=== PATIENT | male | born 1950 | race Caucasian/White ===

== ENCOUNTER 2017-08-09 12:58 | Emergency (ER) | payer MEDICARE, BC ==
[~2017-08-09] VITALS: Ht 177.8 cm; Wt 90.5 kg
[~2017-08-09 12:58] MED LIST: AMLO5TAB22 PO; ATOR10TA PO; B12-1CHW CHEW; CILO50TA PO; CLOP75 PO; ECOT81TA2 PO; METO50TA PO; OMEP40CA2 PO; WALKER ROLLING
[2017-08-09 13:16] VITALS: BP 93/51; PULSE 62; RESP 16; TEMP 98.2; O2SAT 99
[2017-08-09] MEDS ORDERED: OMEP20TA93 PO (13:31)
[2017-08-09] MEDS ORDERED: PLAV75TA29 PO (13:31)
[2017-08-09] MEDS ORDERED: [UNRECOGNIZED DRUG - OTHER] (13:31)
[2017-08-09] MEDS ORDERED: METO50TA PO (13:31)
[2017-08-09] MEDS ORDERED: ASPI1TAB57 PO (13:31)
[2017-08-09] MEDS ORDERED: CILO100T PO (13:31)
[2017-08-09] MEDS ORDERED: ATOR10TA15 PO (13:31)
[2017-08-09] MEDS ORDERED: AMLOPOW PO (13:31)
[2017-08-09] MEDS ORDERED: LIDOCAINE 1%/EPINEPHrine 1:100,000 SOLN 50 ML VIAL INFIL ONE (13:45)
--- NOTE | 2017-08-09 14:24 | RADRPT ---
EXAM DATE/TIME: 08/09/2017 13:48 [place] COMPARISON: No previous studies available for comparison. INDICATIONS : Left forearm pain post dog bite MEDICAL HISTORY : None. SURGICAL HISTORY : None. ENCOUNTER: Initial ACUITY: 1 day PAIN SCORE: 5/10 LOCATION: Left posterior forearm FINDINGS: Air is seen in the soft tissues of the forearm without foreign body or fracture. CONCLUSION: In the soft tissues, dogbite by history. Elfego Elizabeth MD FACR on August 09, 2017 at 14:21 Board Certified Radiologist. This report was verified electronically.
--- NOTE | 2017-08-09 14:41 | PD ---
HPI Chief Complaint: Bite or Sting Time Seen by Provider: 13:37 Travel History International Travel<30 days: No Contact w/Intl Traveler<30days: No Traveled to known affect area: No History of Present Illness HPI Patient comes in the emergency department complaining of dog bite to his left forearm that occurred shortly prior to arrival. Patient reports it was his dog that bit him for the second time in a week. Patient reports dog's vaccinations are up-to-date. Patient states he received a tetanus shot last week when his dog bit him. Patient reports he has 2 and half more days left of Augmentin. Patient denies doing anything for this prior to coming to the emergency department other than applying pressure. Patient denies any numbness or tingling. Patient reports a burning sensation around site of the bite without radiation. Denies anything making symptoms worse. Denies any decreased range of motion or weakness PFSH Past Medical History Hx Anticoagulant Therapy: Yes (PLAVIX) Arthritis: No Asthma: No Autoimmune Disease: No Blood Disorders: No Heart Rhythm Problems: No Cancer: Yes (SKIN CA ON EAR) Cardiovascular Problems: Yes High Cholesterol: Yes Chemotherapy: No Chest Pain: No Congestive Heart Failure: No COPD: No Cerebrovascular Accident: No Diabetes: No Diminished Hearing: No Endocrine: No Gastrointestinal Disorders: Yes (ACID REFLUX, BLOOD IN STOOL,ULCER BASE OF ESOHPAGUS) GERD: Yes Glaucoma: No Genitourinary: No Headaches: No Hepatitis: No Hiatal Hernia: Yes Hypertension: Yes Immune Disorder: No Kidney Stones: No Medical other: No Musculoskeletal: Yes (DIFFICULTY WALKING FOR LONG DISTANCES PVD) Neurologic: No Psychiatric: Yes (SLIGHTLY CLAUSTROPHOBIC) Reproductive: No Respiratory: No Migraines: No Myocardial Infarction: Yes Radiation Therapy: No Renal Failure: No Seizures: No Sickle Cell Disease: No Sleep Apnea: No Thyroid Disease: No Ulcer: No Past Surgical History Abdominal Aneurysm Repair: Yes (DECEMBER 2006) Abdominal Surgery: Yes (RUPTURED AAA 11/28/2006, VENTRAL HERNIA REPAIR X 2008) AICD: No Appendectomy: No Arteriovenous Shunt: No Body Medical Devices: AAA REPAIR, STERNAL WIRES, HERNIA MESH Cardiac Surgery: Yes (CABG 4 VESSEL 01/2007) Cholecystectomy: No Coronary Artery Bypass Graft: Yes (x4 december 2006) Ear Surgery: No Endocrine Surgery: No Eye Surgery: No Genitourinary Surgery: No Gynecologic Surgery: No Insulin Pump: No Joint Replacement: No Neurologic Surgery: No Oral Surgery: Yes (TONSILLECTOMY) Pacemaker: No Thoracic Surgery: No Other Surgery: Yes Family History Family Hypercholesterolemia: Yes Social History Alcohol Use: Yes (VODKA,WINE DAILY ) Tobacco Use: No Substance Use: No Allergies-Medications (Allergen,Severity, Reaction): Coded Allergies: No Known Allergies (Verified Adverse Reaction, Unknown, 08/09/17) Reported Meds & Prescriptions Reported Meds & Active Scripts Active Augmentin (Amoxicillin-Clavulanate) 875-125 Mg Tab 1 Tab PO BID 4 Days start after finishing current prescription Reported [B12 Chew] Omeprazole 20 Mg Tab 20 Mg PO DAILY Metoprolol Tartrate 50 Mg Tab 50 Mg PO BID Plavix (Clopidogrel Bisulfate) 75 Mg Tab 75 Mg PO QOD Cilostazol 100 Mg Tab 100 Mg PO BID Atorvastatin (Atorvastatin Calcium) 10 Mg Tab 10 Mg PO HS Aspirin 81 (Aspirin) 81 Mg Tabdr 81 Mg PO DAILY [Amlodipine Besylate] 5 Mg PO DAILY Review of Systems Except as stated in HPI: all other systems reviewed are Neg Physical Exam Narrative GENERAL: Well-developed, overly nourished, in no acute distress, and non-ill appearing. SKIN: Dog bite on her left forearm with multiple small puncture wounds surrounding it. HEAD: Atraumatic. Normocephalic. EYES: Pupils equal and round. EOMI. No scleral icterus. No injection or drainage. ENT: No nasal bleeding or discharge. Mucous membranes pink and moist. NECK: Trachea midline. Supple. No nuclear rigidity. CARDIOVASCULAR: Radial pulses 2+, intact, equal bilaterally. Capillary refill less than 2 seconds. RESPIRATORY: No accessory muscle use. No respiratory distress. MUSCULOSKELETAL: No obvious deformities. No clubbing. No cyanosis. No edema. Full range of motion. Wrist: FROM and equal BL with passive flexion, extension , and pronation/supination. Capillary refill less than 2 seconds distal to injury and equal BL. FROM distal to injury and equal BL. Strength distal to injury equal BL. NV intact distal to injury. Flexion and extension of thumb equal BL. Equal strength and movement with abduction/adductions of BL fingers. Acupressure Therapist strength equal BL. No tenderness to the anatomical snuffbox. NEUROLOGICAL: Awake and alert. No obvious cranial nerve deficits. Motor grossly within normal limits. Normal speech. PSYCHIATRIC: Appropriate mood and affect; insight and judgment normal. Data Data Last Documented VS Vital Signs Date Time Temp Pulse Resp B/P (MAP) Pulse Ox O2 Delivery O2 Flow Rate FiO2 08/09/17 14:47 120/71 (87) 08/09/17 13:16 98.2 62 16 99 Orders Orders Lidocai-Epi 1%-1:100,000 Inj (Xylocaine- (08/09/17 13:45) Forearm (2vws) (08/09/17 ) Ed Discharge Order (08/09/17 14:42) MDM Medical Decision Making Medical Screen Exam Complete: Yes Emergency Medical Condition: Yes Interpretation(s) Last Impressions Radius/Ulna X-Ray 08/09/17 0000 Signed Impressions: Service Date/Time: Wednesday, August 09, 2017 13:48 - CONCLUSION: In the soft tissues, dogbite by history. Elfego Elizabeth MD FACR Differential Diagnosis Dog bite, laceration, puncture wound, foreign body, fracture, open fracture Narrative Course The patient suffered animal bite wound. The animal is domesticated, vaccinations are reported to be UTD and the animal can be watched. There is no evidence of deep tissue involvement and/or local tendon involvement. There was no evidence to suggest foreign bodies. Visual and tactile exams were unremarkable. There was no evidence of neurovascular injury as well. The patients wounds were irrigated copiously, cleaned and dressed. Rabies prophylaxis was discussed with the patient and exposure appears low risk and not indicated. The patient was given signs and symptom warnings for infection, such as increasing pain, pain with movement of involved extremity,redness, swelling, associated heat, pus or fever. The patient was given antibiotics to cover mouth florencio and instructions for timely follow up for wound recheck. The patient agreed with plan of care. Animal control was contacted per hospital protocol. X-ray was performed and there was no foreign body or tooth/tooth fragment. Patient in no obvious distress upon re-evaluation. All pertinent Radiology result(s) discussed with patient/family. Discussed patient with Dr. Bravo prior to discharge, who is in agreement with plan of care and disposition. Patient was asked if they wanted to speak to my attending, which the patient did not wish to do at this time. Any questions/concerns in reference to patient diagnosis/condition discussed and clarified prior to patient's discharge. Reinforced sheer importance of close follow up with patient's primary physician or primary care clinic. Instructed patient to return to ED immediately, if symptoms return/worsen. Patient showed understanding of above instructions. Further instructions and recommendations were detailed in discharge paperwork. Patient ambulated without difficulty out of ED at discharge. Diagnosis Primary Impression: Dog bite Qualified Codes: W54.0XXA - Bitten by dog, initial encounter Patient Instructions: Animal Bite (ED), General Instructions Additional Instructions: Follow-up with your primary care physician or return here in 10-14 days for suture removal. Take all medication as prescribed. Keep wound dry and clean as possible using soap and water. Do not soak or submerge wound. Return to the emergency department if symptoms get worse. Med/Other Pt SpecificInfo: Prescription(s) given Scripts Amoxicillin-Clavulanate (Augmentin) 875-125 Mg Tab 1 TAB PO BID for Infection for 4 Days, #8 TAB 0 Refills start after finishing current prescription Prov: Lalito Hutchinson MD 08/09/17 Disposition: 01 DISCHARGE HOME Condition: Stable Rubén Ruffin Aug 09, 2017 14:41
[2017-08-09] MEDS ORDERED: AUGM875T3 PO (14:42)
[2017-08-09 14:47] VITALS: BP 120/71
== END 2017-08-09 15:12 | disposition home or self-care (01) ==
LOC: PHEFT 12:58
DX: S51.852A Open bite of left forearm, initial encounter (principal); I10 Essential (primary) hypertension; E78.00 Pure hypercholesterolemia, unspecified; K21.9 Gastro-esophageal reflux disease without esophagitis; I25.2 Old myocardial infarction; I73.9 Peripheral vascular disease, unspecified; W54.0XXA Bitten by dog, initial encounter; Z85.828 Personal history of other malignant neoplasm of skin; Z95.1 Presence of aortocoronary bypass graft; Z86.79 Personal history of other diseases of the circulatory system; Z79.82 Long term (current) use of aspirin; Z79.899 Other long term (current) drug therapy
CPT/HCPCS: 73090; 99283

== ENCOUNTER 2017-08-24 13:16 | Emergency (ER) | payer MEDICARE, BC ==
[~2017-08-24] VITALS: Ht 177.8 cm; Wt 92.3 kg
[~2017-08-24 13:16] MED LIST changes: -AMLO5TAB22 PO; +AMLOPOW PO; +ASPI1TAB57 PO; -ATOR10TA PO; +ATOR10TA15 PO; +AUGM875T3 PO; -B12-1CHW CHEW; +CILO100T PO; -CILO50TA PO; -CLOP75 PO; -ECOT81TA2 PO; +OMEP20TA93 PO; -OMEP40CA2 PO; +PLAV75TA29 PO; -WALKER ROLLING; +[UNRECOGNIZED DRUG - OTHER]
[2017-08-24 13:36] VITALS: BP 130/66; PULSE 73; RESP 16; TEMP 98.3; O2SAT 96
[2017-08-24] MEDS ORDERED: BACT800T5 PO (14:39)
--- NOTE | 2017-08-24 14:40 | PD ---
HPI Chief Complaint: Wound/Suture/Staple Re-Check Time Seen by Provider: 14:04 Travel History International Travel<30 days: No Contact w/Intl Traveler<30days: No Traveled to known affect area: No History of Present Illness HPI This is a 14-year-old male here for suture removal to his left forearm. Patient sustained a laceration caused by dogbite and was evaluated in the ER approximately an days ago. He was placed on antibiotics at the time. He denies fever or chills. He has noticed some redness and swelling to the wound site over the last several days. Severity is mild. No aggravating or alleviating factors. PFSH Past Medical History Hx Anticoagulant Therapy: Yes (PLAVIX) Arthritis: No Asthma: No Autoimmune Disease: No Blood Disorders: No Heart Rhythm Problems: No Cancer: Yes (SKIN CA ON EAR) Cardiovascular Problems: Yes High Cholesterol: Yes Chemotherapy: No Chest Pain: No Congestive Heart Failure: No COPD: No Cerebrovascular Accident: No Diabetes: No Diminished Hearing: No Endocrine: No Gastrointestinal Disorders: Yes (ACID REFLUX, BLOOD IN STOOL,ULCER BASE OF ESOHPAGUS) GERD: Yes Glaucoma: No Genitourinary: No Headaches: No Hepatitis: No Hiatal Hernia: Yes Hypertension: Yes Immune Disorder: No Kidney Stones: No Musculoskeletal: Yes (DIFFICULTY WALKING FOR LONG DISTANCES PVD) Neurologic: No Psychiatric: Yes (SLIGHTLY CLAUSTROPHOBIC) Reproductive: No Respiratory: No Migraines: No Myocardial Infarction: Yes Radiation Therapy: No Renal Failure: No Seizures: No Sickle Cell Disease: No Sleep Apnea: No Thyroid Disease: No Ulcer: No ?: Not Past Surgical History Abdominal Aneurysm Repair: Yes (DECEMBER 2006) Abdominal Surgery: Yes (RUPTURED AAA 11/28/2006, VENTRAL HERNIA REPAIR X 2008) AICD: No Appendectomy: No Arteriovenous Shunt: No Body Medical Devices: AAA REPAIR, STERNAL WIRES, HERNIA MESH Cardiac Surgery: Yes (CABG VESSEL 01/2007) Cholecystectomy: No Coronary Artery Bypass Graft: Yes (x03 january 2007) Ear Surgery: No Endocrine Surgery: No Eye Surgery: No Genitourinary Surgery: No Gynecologic Surgery: No Insulin Pump: No Joint Replacement: No Neurologic Surgery: No Oral Surgery: Yes (TONSILLECTOMY) Pacemaker: No Thoracic Surgery: No Other Surgery: Yes Family History Family Hypercholesterolemia: Yes Social History Alcohol Use: Yes (VODKA,WINE DAILY ) Tobacco Use: No Substance Use: No Allergies-Medications (Allergen,Severity, Reaction): Coded Allergies: No Known Allergies (Verified Adverse Reaction, Unknown, 08/24/17) Reported Meds & Prescriptions Reported Meds & Active Scripts Active Augmentin (Amoxicillin-Clavulanate) 875-125 Mg Tab 1 Tab PO BID 4 Days start after finishing current prescription Reported [B12 Chew] Omeprazole 20 Mg Tab 20 Mg PO DAILY Metoprolol Tartrate 50 Mg Tab 50 Mg PO BID Plavix (Clopidogrel Bisulfate) 75 Mg Tab 75 Mg PO QOD Cilostazol 100 Mg Tab 100 Mg PO BID Atorvastatin (Atorvastatin Calcium) 10 Mg Tab 10 Mg PO HS Aspirin 81 (Aspirin) 81 Mg Tabdr 81 Mg PO DAILY [Amlodipine Besylate] 5 Mg PO DAILY Review of Systems Except as stated in HPI: all other systems reviewed are Neg General / Constitutional: No: Fever Physical Exam Narrative GENERAL: Alert well-appearing 66-year-old male SKIN: Warm and dry. Healing laceration with a large scab to the left forearm. Mild amount of surrounding erythema and edema. The area is mildly indurated and tender to palpation. No fluctuance. No purulent drainage. [address] HEAD: Normocephalic. EYES: No injection or drainage. NECK: Supple MUSCULOSKELETAL: No cyanosis, or edema. See skin noted above Data Data Last Documented VS Vital Signs Date Time Temp Pulse Resp B/P (MAP) Pulse Ox O2 Delivery O2 Flow Rate FiO2 08/24/17 13:36 98.3 73 16 130/66 (87) 96 MDM Medical Decision Making Medical Screen Exam Complete: Yes Emergency Medical Condition: Yes Differential Diagnosis Wound infection, suture removal, abscess Narrative Course 66-year-old male here for suture removal. The wound appears to have mild wound infection. Is indurated with surrounding erythema. No fluctuance noted. 6 sutures were removed. He'll be placed on Bactrim. Instructed to follow-up primary doctor for recheck. Diagnosis Primary Impression: Wound infection Referrals: Primary Care Physician Additional Instructions: Cleansed the area daily with soap and warm water. Apply thin layer of antibiotic ointment and cover with a dressing. Take the antibiotics as prescribed. Follow-up with her primary doctor. Return if he developed new or worsening symptoms Scripts Sulfamethoxazole-Trimethoprim (Bactrim DS) 800-160 Mg Tab 1 TAB PO BID for Infection, #14 TAB 0 Refills Prov: Glenna Dacosta 08/24/17 Disposition: 01 DISCHARGE HOME Condition: Stable Glenna Dacosta Aug 24, 2017 14:40
== END 2017-08-24 15:00 | disposition home or self-care (01) ==
LOC: PHEFT 13:16
DX: Z48.02 Encounter for removal of sutures (principal); L53.9 Erythematous condition, unspecified; E78.00 Pure hypercholesterolemia, unspecified; K21.9 Gastro-esophageal reflux disease without esophagitis; I10 Essential (primary) hypertension; I25.2 Old myocardial infarction; Z79.899 Other long term (current) drug therapy
CPT/HCPCS: 99283

== ENCOUNTER 2018-01-23 08:13 | Observation (INO) ==
--- NOTE | 2018-01-23 10:50 | ED ---
HPI General Chief complaint: Weakness Stated complaint: Weakness Complaint Time Seen by Provider: 01/23/18 10:45 Source: patient and family Mode of arrival: ambulatory Limitations: no limitations History of Present Illness HPI Narrative: 67-year-old male patient presents to the ER today brought in by his because he has had progressive weakness that has really been going on for about a year, but they had just gotten back from vacation and they feel like it is getting worse in the last few weeks, and he has had a series of falls over the last few days, he states he did hit his head but did not have an loss consciousness. He feels like is a general weakness, denies any chest pains , trouble breathing, vomiting, diarrhea, or other symptoms. It does not seem to be focal, feels like his legs just give out on him in general. Related Data Allergies Allergy/AdvReac Type Severity Reaction Status Date / Time No Known Allergies AdvReac Unknown Uncoded 08/24/17 13:36 Review of Systems Except as stated in HPI: all other systems reviewed are negative [facility] Surgical History Surgical History History of AAA (abdominal aortic aneurysm) repair (Acute) S/P CABG x 4 (Acute) Social History Social History Second Hand Smoke Exposure: No Smoking Status: Former smoker How Often Do You Have a Drink Containing Alcohol: 4 or more times a week Recent Travel in [facility] within the Last 8 Weeks: No Recent Out of Country Travel within the Last 8 Weeks: No Immunization History Tetanus Immunization: <5 Years Exam Narrative Exam Narrative: GENERAL: Well-developed elderly white male patient currently in mild distress. Awake and oriented 3. SKIN: Focused skin assessment warm/dry. HEAD: Atraumatic. Normocephalic. EYES: Pupils equal and round. No scleral icterus. No injection or drainage. ENT: No nasal bleeding or discharge. Mucous membranes pink and moist. NECK: Trachea midline. No JVD. CARDIOVASCULAR: Regular rate and rhythm. No murmur appreciated. RESPIRATORY: No accessory muscle use. Clear to auscultation. Breath sounds equal bilaterally. GASTROINTESTINAL: Abdomen soft, non-tender, nondistended. Hepatic and splenic margins not palpable. MUSCULOSKELETAL: No obvious deformities. No clubbing. No cyanosis. No edema. NEUROLOGICAL: Awake and alert. No obvious cranial nerve deficits. Motor grossly within normal limits. Normal speech. PSYCHIATRIC: Appropriate mood and affect; insight and judgment normal. Course Hospital Course: EKG did not show any signs of acute dysrhythmias or ST changes. Patient had no focal neurological deficits. Lab work does show some anemia although it is unclear whether this is contributory. CT the brain did not show any signs of acute injuries or acute processes. At this point, my plan would be to admit him for further evaluation. Case was discussed with [facility] resident service for admission. Initial Documented Vital Signs Temperature 98.3 F 01/23/18 09:39 Pulse Rate 84 01/23/18 09:39 Respiratory Rate 12 01/23/18 09:39 Blood Pressure 148/74 H 01/23/18 09:39 Pulse Oximetry 96 01/23/18 09:39 Last Documented Vital Signs Temperature 98.3 F 01/23/18 09:39 Pulse Rate 84 01/23/18 09:43 Respiratory Rate 17 01/23/18 09:43 Blood Pressure 165/89 H 01/23/18 09:43 Pulse Oximetry 98 01/23/18 09:43 Medical Decision Making MDM Narrative Medical decision making narrative: Dehydration versus electrolyte abnormalities versus acute CVA Lab Data Lab results reviewed: Yes I reviewed the patient's lab results. Result diagrams: 01/23/18 11:00 01/23/18 11:00 Lab Results 01/23/18 01/23/18 Range/Units 11:00 11:00 WBC 4.5 (4.0-11.0) th/mm3 RBC 2.73 L (4.50-5.90) mil/mm3 Hgb 8.3 L (13.0-17.0) gm/dL Hct 25.4 L (39.0-51.0) % MCV 93.0 (80.0-100.0) fL MCH 30.6 (27.0-34.0) pg MCHC 32.9 (32.0-36.0) % RDW 18.5 H (11.6-17.2) % Plt Count 197 (150-450) th/mm3 MPV 7.4 (7.0-11.0) fL Neut % (Auto) 76.7 H (16.0-70.0) % Lymph % (Auto) 10.8 (9.0-44.0) % [place] % (Auto) 11.6 H (0.0-8.0) % Eos % (Auto) 0.3 (0.0-4.0) % Baso % (Auto) 0.6 (0.0-2.0) % Neut # (Auto) 3.4 (1.8-7.7) th/mm3 Lymph # (Auto) 0.5 L (1.0-4.8) th/mm3 Kem[place] # (Auto) 0.5 (0.0-0.9) th/mm3 Eos # (Auto) 0.0 (0.0-0.4) th/mm3 Baso # (Auto) 0.0 (0.0-0.2) th/mm3 WBC Differential . Differential Comment Auto diff final Sodium 132 L (136-145) meq/L Potassium 3.2 L (3.5-5.1) meq/L Chloride 96 L (98-107) meq/L Carbon Dioxide 20.1 L (21.0-32.0) meq/L Anion Gap 16 H (5-15) meq/L BUN 18 (7-18) mg/dL Creatinine 1.21 (0.60-1.30) mg/dL Estimated GFR 59 L (>89) mL/min Random Glucose 74 (74-106) mg/dL Calcium 8.2 L (8.5-10.1) mg/dL Total Bilirubin 0.7 (0.2-1.0) mg/dL AST 76 H (15-37) U/L ALT 51 (12-78) U/L Alkaline Phosphatase 66 (45-117) U/L Troponin I Less than 0.02 L (0.02-0.05) ng/mL Total Protein 7.3 (6.4-8.2) g/dL Albumin 3.8 (3.4-5.0) g/dL Imaging Data Attestation: I personally reviewed and interpreted this imaging study as follows : Radiologist's impression: Chest X-Ray 01/23/18 10:45 CONCLUSION: No acute cardiopulmonary disease. Head CT 01/23/18 10:45 CONCLUSION: 1. No acute hemorrhage or mass effect. 2. Moderate atrophy and extensive chronic small vessel ischemic changes. ECG Data EKG Prior to Arrival: Yes Attestation: I personally reviewed and interpreted this ECG as follows: Interpretation: EKG shows sinus rhythm at a rate of 73 bpm. No signs of acute ST elevations or depressions. Discharge Plan Discharge Disposition Patient Disposition: 30 Still Patient Discharge Condition Condition: Stable Discharge Details Anticipated Discharge Date: 01/23/18 Diagnosis: Anemia, Multiple falls, Weakness Physicians Team ED Provider: Jessica Mckay Primary Care Provider: Leah Arteaga Discharge Interventions Interventions: Vital Signs Last Done: 01/23/18 09:43 Status ED Status: With Doctor
--- NOTE | 2018-01-23 11:23 | XR ---
EXAM DATE: 01/23/2018 11:18 AM EDT AGE/SEX: 67 years / Male INDICATIONS: Palpitations. Increased weakness and falls. CLINICAL DATA: This is the patient's initial encounter. Patient reports that signs and symptoms have been present for > 1 year and indicates a pain score of 0/10. MEDICAL/SURGICAL HISTORY: Hypertension. Abdominal aortic aneurysm repair. CABG. COMPARISON: No prior exams available for comparison. FINDINGS: A single AP view of the chest demonstrates the lungs to be symmetrically aerated without evidence of mass, infiltrate or effusion. The cardiomediastinal contours are unremarkable. Osseous structures a re intact. The patient is status post median sternotomy for bypass grafting procedure. There are ove rlying electrocardiogram leads. CONCLUSION: No acute cardiopulmonary disease. Electronically signed by: Roge Lopez MD 01/23/2018 11:22 AM EDT
--- NOTE | 2018-01-23 11:25 | ECG ---
Date Performed: 01/23/2018 Time Performed: 09:38:59 PTAGE: 67 years EKG: Sinus rhythm INFERIOR MYOCARDIAL INFARCTION ABNORMAL ECG PREVIOUS TRACING : 01/23/2018 09.37 DOCTOR: Sarmad Wiseman Interpretating Date/Time 01/23/2018 11:24:13
--- NOTE | 2018-01-23 11:37 | CT ---
EXAM DATE: 01/23/2018 11:35 AM EDT AGE/SEX: 67 years / Male INDICATIONS: Weakness. Multiple falls. CLINICAL DATA: This is the patient's initial encounter. Patient reports that signs and symptoms have been present for 3 weeks and indicates a pain score of 0/10. MEDICAL/SURGICAL HISTORY: Cardiovascular disease. CABG. Abdominal aortic aneurysm repair. RADIATION DOSE: 66.34 CTDI (mGy) COMPARISON: No prior exams available for comparison. TECHNIQUE: CT of the head without contrast. Using automated exposure control and adjustment of the mA and/or kV according to patient size, radiation dose was kept as low as reasonably achievable to ob tain optimal diagnostic quality images. DICOM format image data is available electronically for revi ew and comparison. FINDINGS: Cerebrum: The ventricles are normal for age with diffuse moderate atrophic change with sulcal and ve ntricular prominence. Extensive chronic small vessel ischemic changes are noted with low-attenuation throughout the periventricular white matter. No evidence of midline shift, mass lesion, hemorrhage or acute infarction. No extraaxial fluid collections are seen. Posterior Fossa: The cerebellum and brainstem are intact. The 4th ventricle is midline. The cerebe llopontine angle is unremarkable. Extracranial: The visualized portion of the orbits is intact. Skull: The calvaria is intact. No evidence of skull fracture. CONCLUSION: 1. No acute hemorrhage or mass effect. 2. Moderate atrophy and extensive chronic small vessel ischemic changes. Electronically signed by: Roge Lopez MD 01/23/2018 11:36 AM EDT
[2018-01-23 11:39] LABS: Baso % (Auto) 0.6 % (0.0-2.0); Eos % (Auto) 0.3 % (0.0-4.0); Hematocrit 25.4 % (39.0-51.0); Hemoglobin 8.3 gm/dL (13.0-17.0); Lymph # (Auto) 0.5 th/mm3 (1.0-4.8); Lymph % (Auto) 10.8 % (9.0-44.0); Mean Corpuscular HGB Conc 32.9 % (32.0-36.0); Mean Corpuscular Hemoglobin 30.6 pg (27.0-34.0); Mean Platelet Volume 7.4 fL (7.0-11.0); Mono # (Auto) 0.5 th/mm3 (0.0-0.9); Mono % (Auto) 11.6 % (0.0-8.0); Neut # (Auto) 3.4 th/mm3 (1.8-7.7); Neut % (Auto) 76.7 % (16.0-70.0); Platelet Count 197 th/mm3 (150-450); Red Blood Count 2.73 mil/mm3 (4.50-5.90); Red Cell Distribution Width 18.5 % (11.6-17.2); White Blood Count 4.5 th/mm3 (4.0-11.0)
[2018-01-23 12:06] LABS: Alanine Aminotransferase 51 U/L (12-78); Anion Gap 16 meq/L (5-15); Aspartate Aminotransferase 76 U/L (15-37); Blood Urea Nitrogen 18 mg/dL (7-18); Calcium 8.2 mg/dL (8.5-10.1); Carbon Dioxide 20.1 meq/L (21.0-32.0); Chloride 96 meq/L (98-107); Glomerular Filtration Rate 59 mL/min (>89); Glucose,Random 74 mg/dL (74-106); Potassium 3.2 meq/L (3.5-5.1); Sodium 132 meq/L (136-145)
[2018-01-23 12:07] LABS: Albumin 3.8 g/dL (3.4-5.0); Alkaline Phosphatase 66 U/L (45-117); Total Protein 7.3 g/dL (6.4-8.2)
[2018-01-23] MEDS ORDERED: traMADol/Acetaminophen 37.5/325 MG Tablet PO ONE (12:50)
--- NOTE | 2018-01-23 12:56 | P.HPFP ---
History of Present Illness Primary Care Physician: Leah Arteaga MD <Chevy Hernandez - 01/23/18 19:57> Leah Arteaga MD <Roge Flores - 01/23/18 15:42> Chief Complaint: Weakness <Roge Flores - 01/23/18 15:42> History of Present Illness: 67-year-old male presenting to the emergency department for progressive weakness and falls at home. He states that over the last several months she has progressively become more weak and has had numerous falls at home due to this weakness and being unsteady on his feet. He states that he fell approximately 1 week ago in which she had immediate left wrist pain that has not improved. Yesterday, he states that he fell approximately 3-4 times at home. These falls are described as mechanical falls due to instability, he denies any loss of consciousness or syncopal events. He denies fevers or chills, he denies palpitations or chest pain, he denies shortness of breath, he denies lower extremity paresthesias, he denies bowel or bladder incontinence, he denies post ictal type symptoms. He does have a heavy history of alcohol use with his drink of choice being vodka. He states that he will drink approximately one half bottle of vodka per day and he has done this for several years. He has not had any episodes of withdrawal, however he is also not had any extended period of abstaining from alcohol over the last several years. He states he continues to eat well, however he has continued his high level of alcohol intake. <Chevy Hernandez - 01/23/18 19:57> Patient is a 67-year-old male past history of hypertension, hyperlipidemia, AAA repair who presents to the ED today for weakness and falls. He and his reports that he has had weakness for approximately 1 year. He is to have falls , weakness, however his primary care doctor reduced his blood pressure medications due to low blood pressure and his weakness improved. Over the past week his increased weakness, fell approximately 1 week ago. Yesterday he fell approximately 3 times. States there is no loss of consciousness prior to or following any of the times he fell. He "just felt weak." He fell onto the carpeted area one time, on tile one time, into the shower one time. He hit the front of his head once. No changes in vision, headache, lightheadedness, dizziness, nausea, vomiting, shortness of breath, left arm or jaw pain, diaphoresis, headache. He reports he typically drinks half a bottle of vodka or wine every night, has not taking his night off from drinking for the past year and a half. He also reports that he has calcification of his arteries in his legs, typically has a CT scan every year for it and his past AAA surgery. He notes pain when walking short distances in his calves and legs. <Roge Flores 01/23/18 15:42> - Diagnosis (1) Weakness (2) Multiple falls (3) Left radial fracture (4) Alcohol abuse (5) Hypertension (6) Hyperlipidemia (7) Depression (8) History of coronary artery bypass graft (9) Claudication (10) Nutrition, metabolism, and development symptoms <Chevy Hernandez 01/23/18 19:57> (1) Weakness (2) Multiple falls (3) Left radial fracture (4) Alcohol abuse (5) Hypertension (6) Hyperlipidemia (7) Depression (8) History of coronary artery bypass graft (9) Claudication (10) Nutrition, metabolism, and development symptoms <Roge Flores 01/23/18 16:40> Review of Systems History Medical: HTN, HLD, Depression Surgical: Ruptured AAA repair 2007 Quadruple bypass 2006 Ventral Hernia repair 2008 Family: Mother: DM Father: Passed from OR at 66 Social Alcohol:Drinks wine or vodka a day, half a bottle (fifth), typically does not miss a day Smoking:last smoked 30 years ago, 4 PPD for 23 years Drugs:None <Roge Flores 01/23/18 15:42> Constitutional: Reports lack of energy, Reports weakness, Denies body ache(s), Denies fever(s), Denies headache(s) <Roge Flores 01/23/18 15:42> Eyes: Denies blind spots, Denies blurry vision, Denies change in vision, Denies double vision, Denies loss of vision <Roge Flores 01/23/18 15:42> Ears, Nose, Mouth, and Throat: Denies abnormal hearing, Denies hearing loss, Denies nasal discharge <Roge Flores 01/23/18 15:42> Cardiovascular: Denies chest pain, Denies chest pain with activity, Denies excessive sweating, Denies fast heart rate, Denies generalized swelling, Denies irregular heart rhythm, Denies lightheadedness, Denies radiating jaw, neck or arm pain, Denies rapid, pounding, or irregular heartbeat, Denies shortness of breath, Denies slow heart rate <Roge Flores 01/23/18 15:42> Respiratory: Denies chest congestion, Denies cough, Denies shortness of breath, Denies wheezing <Roge Flores 01/23/18 15:42> Gastrointestinal: Denies abdominal pain, Denies bright, red blood in stools, Denies change in bowel habits, Denies change in stools, Denies nausea, Denies vomiting <Roge Flores 01/23/18 15:42> Genitourinary: Denies blood in urine, Denies decreased urination, Denies painful urination <Roge Flores 01/23/18 15:42> Musculoskeletal: Reports muscle weakness, Denies joint pain, Denies joint swelling, Denies numbness <Roge Flores 01/23/18 15:42> Skin/Breast: Denies rash, Denies skin ulcer <Roge Flores 01/23/18 15:42 > Neurologic: Reports frequent falls, Denies abnormal speech, Denies behavioral changes, Denies dizziness, Denies fainting, Denies headache(s), Denies lack of coordination, Denies loss of vision, Denies numbness, Denies seizure-like activity, Denies tingling/numbness/burning sensations <Roge Flores 15:42> Psychiatric: Reports depression, Denies anxiety, Denies thoughts of hurting/ killing others, Denies thoughts of hurting/killing yourself <Roge Flores 01/23/18 15:42> Endocrine: Denies excessive sweating, Denies flushing, Denies heat intolerance <Roge Flores 01/23/18 15:42> Hematologic/Lymphatic: Reports easy bruising, Denies easy bleeding <Roge Flores 01/23/18 15:42> PMFSH - History History Provided By: Patient <Roge Flores 07/24/18 12:56> - Surgical History Surgical History: Surgical History (Last Updated 01/23/18 @ 10:49 by Jessica Mckay MD) History of AAA (abdominal aortic aneurysm) repair S/P CABG x 4 <Chevy Hernandez 01/23/18 19:57> Surgical History (Last Updated 01/23/18 @ 10:49 by Jessica Mckay MD) History of AAA (abdominal aortic aneurysm) repair S/P CABG x 4 <Roge Flores 01/23/18 12:56> - Tobacco History Second Hand Smoke Exposure: No <Roge Flores 01/23/18 12:56> Tobacco Use In Past 30 Days: No <Roge Flores 01/23/18 12:56> Smoking Status: Former smoker <Roge Flores 01/23/18 12:56> - Alcohol History How Often Do You Have a Drink Containing Alcohol: 4 or more times a week < Roge Flores 01/23/18 12:56> - Travel History Recent Travel in the [facility] Within the Last 8 Weeks: No <Roge Flores 01/23 12:56> Recent Travel Out of the Country Within the Last 8 Weeks: No <Roge Flores 01/23/18 12:56> - Immunization History Tetanus Immunization: <5 Years <Roge Flores 01/23/18 12:56> Medications and Allergies Allergies Allergy/AdvReac Type Severity Reaction Status Date / Time No Known Allergies AdvReac Unknown Uncoded 08/24/17 13:36 <Chevy Hernandez 01/23/18 19:57> Home Medications Medication Instructions Recorded Confirmed Type amlodipine 5 mg PO DAILY 01/23/18 01/23/18 History aspirin [Aspir-81] 81 mg PO DAILY 01/23/18 01/23/18 History cilostazol 100 mg PO BID 01/23/18 01/23/18 History clopidogrel 75 mg PO EVERY OTHER DAY 01/23/18 01/23/18 History cyanocobalamin (vitamin B-12) 2,500 mcg PO DAILY 01/23/18 01/23/18 History escitalopram oxalate 10 mg PO BID 01/23/18 01/23/18 History metoprolol tartrate 50 mg PO BID 01/23/18 01/23/18 History midodrine 2.5 mg PO PRN 01/23/18 01/23/18 History pantoprazole 40 mg PO DAILY 01/23/18 01/23/18 History rosuvastatin [Crestor] 5 mg PO DAILY 01/23/18 01/23/18 History <Chevy Hernandez - 01/23/18 19:57> Active Medications: Active Medications Al Hydroxide/Mg Hydroxide (Milk Of Wilfredo Vega) 30 ml PO Q12H PRN PRN Reason: Mild Constipation Amlodipine Besylate (Norvasc) 5 mg PO DAILY [facility] Aspirin (Ecotrin) 81 mg PO DAILY [facility] Atorvastatin Calcium (Lipitor) 10 mg PO DAILY [facility] Cilostazol (Pletal) 100 mg PO BID [facility] Clopidogrel Bisulfate (Plavix) 75 mg PO EVERY OTHER DAY [facility] Escitalopram Oxalate (Lexapro) 10 mg PO BID [facility] Flumazenil (Romazecon Inj) 0.2 mg IV.PUSH Q1M PRN PRN Reason: OVERSEDATION Haloperidol Lactate (Haldol Inj) 1 mg IV.PUSH Q15M PRN PRN Reason: for severe agitation Lorazepam (Ativan) 1 mg PO Q4H PRN PRN Reason: for CIWA 8-10 Lorazepam (Ativan) 2 mg PO Q2H PRN PRN Reason: for CIWA 11-14 Lorazepam (Ativan Inj) 2 mg IV.PUSH Q1H PRN PRN Reason: for CIWA 15-20 Lorazepam (Ativan Inj) 2 mg IV.PUSH Q15M PRN PRN Reason: for CIWA > 20 Lorazepam (Ativan Inj) 1 mg IV.PUSH Q4H PRN PRN Reason: for CIWA 8-10 Lorazepam (Ativan Inj) 2 mg IV.PUSH Q2H PRN PRN Reason: for CIWA 11-14 Metoprolol Tartrate (Lopressor) 50 mg PO BID [facility] Midodrine (Proamatine) 2.5 mg PO DAILY PRN PRN Reason: LOW BLOOD PRESSURE Miscellaneous (Pill Splitter) 1 each OTHER UNSCH [facility] Ondansetron HCl (Zofran Odt) 4 mg PO Q6H PRN PRN Reason: NAUSEA OR VOMITING Pantoprazole Sodium (Protonix) 40 mg PO DAILY [facility] Senna/Docusate Sodium (Keila-Colace) 1 tab PO BID [facility] Sennosides (Senokot) 17.2 mg PO Q12H PRN PRN Reason: Moderate Constipation Sodium Chloride (Ns Flush) 2 ml IV.FLUSH PRN PRN PRN Reason: FLUSH AFTER USING IV ACCESS <Chevy Hernandez - 01/23/18 19:57> Active Medications Sodium Chloride (Ns Flush) 2 ml IV.FLUSH PRN PRN PRN Reason: FLUSH AFTER USING IV ACCESS <Roge Flores - 01/23/18 12:56> Exam Vital signs: Vital Signs 01/23/18 09:39 01/23/18 09:43 01/23/18 13:35 Temperature 98.3 F Pulse Rate 84 84 75 Respiratory Rate 12 17 17 Blood Pressure 148/74 H 165/89 H 148/72 H Pulse Oximetry 96 98 96 01/23/18 15:50 Temperature 99.0 F Pulse Rate 96 H Respiratory Rate 20 Blood Pressure 152/79 H Pulse Oximetry 96 Intake & Output 01/23/18 01/23/18 01/24/18 06:59 18:59 06:59 Weight 90.8 kg Other: Weight On Admission 90.8 kg <Chevy Hernandez 01/23/18 19:57> Vital Signs 01/23/18 09:39 01/23/18 09:43 Temperature 98.3 F Pulse Rate 84 84 Respiratory Rate 12 17 Blood Pressure 148/74 H 165/89 H Pulse Oximetry 96 98 Intake & Output 01/22/18 01/23/18 01/23/18 18:59 06:59 18:59 Weight 90.718 kg <Roge Flores - 01/23/18 12:56> Narrative: General: Elderly appearing male, lying in bed in no obvious distress Skin: Several upper extremity skin tears with ecchymosis over torso and upper extremities HEENT: PERRLA, no scleral icterus or injection, mucous membranes moist CV: Irregular rate, mildly tachycardic, multiple PVCs Pulmonary: Clear to auscultation bilaterally GI: Distended abdomen that is soft and nontender MSK: Left distal forearm swollen and tender to palpation <Chevy Hernandez 01/23/18 19:57> GENERAL: Laying in bed, guarding left wrist SKIN: Warm and dry. Many ecchymoses, skin tears. HEAD: Atraumatic. Normocephalic. EYES: Pupils equal and round. No scleral icterus. No injection or drainage. ENT: No nasal bleeding or discharge. Mucous membranes pink and moist. NECK: Trachea midline. No JVD. CARDIOVASCULAR: Regular rate and rhythm. RESPIRATORY: No accessory muscle use. Clear to auscultation. Breath sounds equal bilaterally. GASTROINTESTINAL: Abdomen soft, non-tender, nondistended. Hepatic and splenic margins not palpable. MUSCULOSKELETAL: Extremities without clubbing, cyanosis. Swelling of left wrist , guarded. Neurovascularly intact. NEUROLOGICAL: Awake and alert. No obvious cranial nerve deficits. Motor grossly within normal limits. Normal speech. PSYCHIATRIC: Appropriate mood and affect; insight and judgment normal. <Roge Flores - 01/23/18 16:13> Results - Labs Result diagrams: 01/23/18 11:00 01/23/18 11:00 <Chevy Hernandez - 01/23/18 19:57> Abnormal lab results 01/23/18 01/23/18 01/23/18 Range/Units 11:00 11:00 17:37 RBC 2.73 L (4.50-5.90) mil/mm3 Hgb 8.3 L (13.0-17.0) gm/dL Hct 25.4 L (39.0-51.0) % RDW 18.5 H (11.6-17.2) % Neut % (Auto) 76.7 H (16.0-70.0) % [place] % (Auto) 11.6 H (0.0-8.0) % Lymph # (Auto) 0.5 L (1.0-4.8) th/mm3 Sodium 132 L (136-145) meq/L Potassium 3.2 L (3.5-5.1) meq/L Chloride 96 L (98-107) meq/L Carbon Dioxide 20.1 L (21.0-32.0) meq/L Anion Gap 16 H (5-15) meq/L Estimated GFR 59 L (>89) mL/min Calcium 8.2 L (8.5-10.1) mg/dL AST 76 H (15-37) U/L Troponin I Less than 0.02 L Less than 0.02 L (0.02-0.05) ng/mL Short CBC 01/23/18 Range/Units 11:00 WBC 4.5 (4.0-11.0) th/mm3 Hgb 8.3 L (13.0-17.0) gm/dL Hct 25.4 L (39.0-51.0) % Plt Count 197 (150-450) th/mm3 BMP 01/23/18 11:00 Sodium 132 L Potassium 3.2 L Chloride 96 L Carbon Dioxide 20.1 L BUN 18 Creatinine 1.21 Calcium 8.2 L Cardiac Enzymes 01/23/18 01/23/18 Range/Units 11:00 17:37 Troponin I Less than 0.02 L Less than 0.02 L (0.02-0.05) ng/mL Liver Function 01/23/18 Range/Units 11:00 Total Bilirubin 0.7 (0.2-1.0) mg/dL AST 76 H (15-37) U/L ALT 51 (12-78) U/L Alkaline Phosphatase 66 (45-117) U/L Albumin 3.8 (3.4-5.0) g/dL <Chevy Hernandez - 01/23/18 19:57> Abnormal lab results 01/23/18 01/23/18 Range/Units 11:00 11:00 RBC 2.73 L (4.50-5.90) mil/mm3 Hgb 8.3 L (13.0-17.0) gm/dL Hct 25.4 L (39.0-51.0) % RDW 18.5 H (11.6-17.2) % Neut % (Auto) 76.7 H (16.0-70.0) % [place] % (Auto) 11.6 H (0.0-8.0) % Lymph # (Auto) 0.5 L (1.0-4.8) th/mm3 Sodium 132 L (136-145) meq/L Potassium 3.2 L (3.5-5.1) meq/L Chloride 96 L (98-107) meq/L Carbon Dioxide 20.1 L (21.0-32.0) meq/L Anion Gap 16 H (5-15) meq/L Estimated GFR 59 L (>89) mL/min Calcium 8.2 L (8.5-10.1) mg/dL AST 76 H (15-37) U/L Troponin I Less than 0.02 L (0.02-0.05) ng/mL Short CBC 01/23/18 Range/Units 11:00 WBC 4.5 (4.0-11.0) th/mm3 Hgb 8.3 L (13.0-17.0) gm/dL Hct 25.4 L (39.0-51.0) % Plt Count 197 (150-450) th/mm3 BMP 01/23/18 11:00 Sodium 132 L Potassium 3.2 L Chloride 96 L Carbon Dioxide 20.1 L BUN 18 Creatinine 1.21 Calcium 8.2 L Cardiac Enzymes 01/23/18 Range/Units 11:00 Troponin I Less than 0.02 L (0.02-0.05) ng/mL Liver Function 01/23/18 Range/Units 11:00 Total Bilirubin 0.7 (0.2-1.0) mg/dL AST 76 H (15-37) U/L ALT 51 (12-78) U/L Alkaline Phosphatase 66 (45-117) U/L Albumin 3.8 (3.4-5.0) g/dL <oRge Flores 01/23/18 12:56> - Imaging Impressions Chest X-Ray 01/23/18 10:45 CONCLUSION: No acute cardiopulmonary disease. Head CT 01/23/18 10:45 CONCLUSION: 1. No acute hemorrhage or mass effect. 2. Moderate atrophy and extensive chronic small vessel ischemic changes. Wrist X-Ray 01/23/18 12:31 CONCLUSION: 1. Mildly comminuted fracture deformity of the distal radius. 2. Osteoarthritic change. <Chevy Hernandez - 01/23/18 19:57> Impressions Chest X-Ray 01/23/18 10:45 CONCLUSION: No acute cardiopulmonary disease. Head CT 01/23/18 10:45 CONCLUSION: 1. No acute hemorrhage or mass effect. 2. Moderate atrophy and extensive chronic small vessel ischemic changes. <Roge Flores 01/23/18 12:56> Caprini VTE Risk Assessment Caprini VTE Risk Assessment: Moderate/High Risk (score >= 2) <Roge Flores 01/23/18 16:13> Caprini Risk Assessment Model: Point Value = 1 Point Value = 2 Point Value = 3 Point Value = 5 Age 41-60 Minor surgery BMI > 25 kg/m2 Swollen legs Varicose veins or History of unexplained or recurrent spontaneous Oral contraceptives or hormone replacement Sepsis (< 1 month) Serious lung disease, including pneumonia (< 1 month) Abnormal pulmonary function Acute myocardial infarction Congestive heart failure (< 1 month) History of inflammatory bowel disease Medical patient at bed rest Age 61-74 Arthroscopic surgery Major open surgery (> 45 min) Laparoscopic surgery (> 45 min) Malignancy Confined to bed (> 72 hours) Immobilizing plaster cast Central venous access Age >= 75 History of VTE Family history of VTE Factor V Leiden Prothrombin [id number] Lupus anticoagulant Anticardiolipin antibodies Elevated serum homocysteine Heparin-induced thrombocytopenia Other congenital or acquired thrombophilia Stroke (< 1 month) Elective arthroplasty Hip, pelvis, or leg fracture Acute spinal cord injury (< 1 month) <Chevy Hernandez - 01/23/18 19:57> Point Value = 1 Point Value = 2 Point Value = 3 Point Value = 5 Age 41-60 Minor surgery BMI > 25 kg/m2 Swollen legs Varicose veins or History of unexplained or recurrent spontaneous Oral contraceptives or hormone replacement Sepsis (< 1 month) Serious lung disease, including pneumonia (< 1 month) Abnormal pulmonary function Acute myocardial infarction Congestive heart failure (< 1 month) History of inflammatory bowel disease Medical patient at bed rest Age 61-74 Arthroscopic surgery Major open surgery (> 45 min) Laparoscopic surgery (> 45 min) Malignancy Confined to bed (> 72 hours) Immobilizing plaster cast Central venous access Age >= 75 History of VTE Family history of VTE Factor V Leiden Prothrombin [id number] Lupus anticoagulant Anticardiolipin antibodies Elevated serum homocysteine Heparin-induced thrombocytopenia Other congenital or acquired thrombophilia Stroke (< 1 month) Elective arthroplasty Hip, pelvis, or leg fracture Acute spinal cord injury (< 1 month) <Roge Flores - 01/23/18 16:13> Prophylaxis Regimen: Total Risk Factor Score Risk Level Prophylaxis Regimen 0-1 Low Early ambulation 2 Moderate Order ONE of the following: *Sequential Compression Device (SCD) *Heparin 5000 units SQ BID 3-4 Higher Order ONE of the following medications: *Heparin 5000 units SQ TID *Enoxaparin/Lovenox 40 mg SQ daily (WT < 150 kg, CrCl > 30 mL/min) *Enoxaparin/Lovenox 30 mg SQ daily (WT < 150 kg, CrCl > 10-29 mL/min) *Enoxaparin/Lovenox 30 mg SQ BID (WT < 150 kg, CrCl > 30 mL/min) AND/OR *Sequential Compression Device (SCD) 5 or more Highest Order ONE of the following medications: *Heparin 5000 units SQ TID (Preferred with Epidurals) *Enoxaparin/Lovenox 40 mg SQ daily (WT < 150 kg, CrCl > 30 mL/min) *Enoxaparin/Lovenox 30 mg SQ daily (WT < 150 kg, CrCl > 10-29 mL/min) *Enoxaparin/Lovenox 30 mg SQ BID (WT < 150 kg, CrCl > 30 mL/min) AND *Sequential Compression Device (SCD) <Chevy Hernandez - 01/23/18 19:57> Total Risk Factor Score Risk Level Prophylaxis Regimen 0-1 Low Early ambulation 2 Moderate Order ONE of the following: *Sequential Compression Device (SCD) *Heparin 5000 units SQ BID 3-4 Higher Order ONE of the following medications: *Heparin 5000 units SQ TID *Enoxaparin/Lovenox 40 mg SQ daily (WT < 150 kg, CrCl > 30 mL/min) *Enoxaparin/Lovenox 30 mg SQ daily (WT < 150 kg, CrCl > 10-29 mL/min) *Enoxaparin/Lovenox 30 mg SQ BID (WT < 150 kg, CrCl > 30 mL/min) AND/OR *Sequential Compression Device (SCD) 5 or more Highest Order ONE of the following medications: *Heparin 5000 units SQ TID (Preferred with Epidurals) *Enoxaparin/Lovenox 40 mg SQ daily (WT < 150 kg, CrCl > 30 mL/min) *Enoxaparin/Lovenox 30 mg SQ daily (WT < 150 kg, CrCl > 10-29 mL/min) *Enoxaparin/Lovenox 30 mg SQ BID (WT < 150 kg, CrCl > 30 mL/min) AND *Sequential Compression Device (SCD) <Roge Flores - 01/23/18 12:56> Assessment and Plan - Assessment (1) Weakness Code(s): R53.1 - Weakness Status: Acute Plan: Likely multifactorial with progressive weakness due to heavy alcohol intake and poor nutrition -Possible cardiovascular versus neurologic cause MRI ordered and pending Echocardiogram ordered and pending Monitor on telemetry Trend troponins and EKGs 3 Monitor electrolytes and correct them as needed Follow-up B12 lab order PT/OT ordered to evaluate patient Case management ordered to assist with probable placement (2) Multiple falls Code(s): R29.6 - Repeated falls Status: Acute (3) Left radial fracture Code(s): S52.92XA - Unspecified fracture of left forearm, initial encounter for closed fracture Status: Acute Plan: Splint to be applied and orthopedic consult placed (4) Alcohol abuse Code(s): F10.10 - Alcohol abuse, uncomplicated Status: Chronic Plan: Heavy history of alcohol abuse and CT of the brain shows diffuse atrophy Monitor for signs of withdrawal CIWA protocol in place (5) Hypertension Code(s): I10 - Essential (primary) hypertension Status: Acute (6) Hyperlipidemia Code(s): E78.5 - Hyperlipidemia, unspecified Status: Acute (7) Depression Code(s): F32.9 - Major depressive disorder, single episode, unspecified Status : Acute (8) History of coronary artery bypass graft Code(s): Z95.1 - Presence of aortocoronary bypass graft Status: Acute (9) Claudication Code(s): I73.9 - Peripheral vascular disease, unspecified Status: Acute (10) Nutrition, metabolism, and development symptoms Code(s): R63.8 - Other symptoms and signs concerning food and fluid intake Status: Acute <Chevy Hernandez - 01/23/18 19:57> (1) Weakness Code(s): R53.1 - Weakness Status: Acute Plan: History of 1 year of weakness, recently increased, 3 falls yesterday. No known syncope or cardiac symptoms. CT without acute findings. -Follow-up MRI -Follow-up echocardiogram -Telemetry -Monitor and correct electrolytes as needed -Trend troponins, EKGs -Follow-up B12 (2) Multiple falls Code(s): R29.6 - Repeated falls Status: Acute Plan: See plan for weakness (3) Left radial fracture Code(s): S52.92XA - Unspecified fracture of left forearm, initial encounter for closed fracture Status: Acute Plan: Closed left radial fracture status post fall secondary to weakness. Neurovascularly intact. -Splint to be applied -Follow up orthopedic recommendations (4) Alcohol abuse Code(s): F10.10 - Alcohol abuse, uncomplicated Status: Chronic Plan: History of alcohol abuse, drinks approximately one half bottle of wine or vodka daily. Denies sustained abstinence within the past year. -Monitor for signs withdrawal -[facility] protocols (5) Hypertension Code(s): I10 - Essential (primary) hypertension Status: Acute Plan: History of hypertension -Continue home metoprolol 50 mg p.o. twice daily, amlodipine 5 mg's daily (6) Hyperlipidemia Code(s): E78.5 - Hyperlipidemia, unspecified Status: Acute Plan: History of hyperlipidemia -Continue home rosuvastatin 5 mg daily (7) Depression Code(s): F32.9 - Major depressive disorder, single episode, unspecified Status : Acute Plan: History of depression -Continue home Lexapro 10 mg p.o. twice daily (8) History of coronary artery bypass graft Code(s): Z95.1 - Presence of aortocoronary bypass graft Status: Acute Plan: Reports a history of four-vessel CABG in 2006. -Continue home medications aspirin 81 mg p.o. daily, Plavix 75 mg p.o. every other day (9) Claudication Code(s): I73.9 - Peripheral vascular disease, unspecified Status: Acute Plan: History of chronic claudication. No recent increase in symptoms. Reports he has been worked up outpatient for this with no intervention. -Continue Pletal 100 mg p.o. twice daily (10) Nutrition, metabolism, and development symptoms Code(s): R63.8 - Other symptoms and signs concerning food and fluid intake Status: Acute Plan: Fluids: Tolerating p.o. Electrolytes: Monitor and replete as needed Nutrition: Tolerating p.o., will need n.p.o. if going to surgery <Roge Flores - 01/23/18 16:40> - Attending Attestation Patient was examined independently and case discussed with resident physicians I have read the above note and agree with the assessment/plan as discussed with me I was involved in all medical decision making for this patient Chevy Hernandez MD <Chevy Hernandez - 01/23/18 19:57>
--- NOTE | 2018-01-23 13:34 | XR ---
EXAM DATE: 01/23/2018 1:12 PM EDT AGE/SEX: 67 years / Male INDICATIONS: Multiple falls in past few months, fell yesterday, pain and swelling left wrist CLINICAL DATA: This is the patient's initial encounter. Patient reports that signs and symptoms have been present for 1 day and indicates a pain score of 10/10. MEDICAL/SURGICAL HISTORY: Cardiovascular disease. Aneurysm, abdominal. Hypertension. weaknes s CABG. Abdominal aortic aneurysm repair. COMPARISON: [facility], FOREARM LEFT (2VWS), 08/09/2017. . FINDINGS: AP, lateral and oblique views of the left wrist were obtained and demonstrate a mildly comminuted obl ique fracture through the distal radius. Degenerative changes are noted involving the radiocarpal levon nt with joint space loss, sclerosis and hypertrophic change. There are mild degenerative changes in t he intercarpal joints and metacarpal carpal joints. The distal ulna is intact. There is calcification in the region of the triangular fibrocartilage. Soft tissue swelling is present along the dorsum of the wrist. CONCLUSION: 1. Mildly comminuted fracture deformity of the distal radius. 2. Osteoarthritic change. Electronically signed by: Roge Lopez MD 01/23/2018 1:33 PM EDT
[2018-01-23] MEDS ORDERED: Haloperidol Inj 5 MG/ML Ampul IV.PUSH PRN (16:11)
[2018-01-23] MEDS ORDERED: LORazepam 1 MG Tablet PO PRN (16:11)
[2018-01-23] MEDS: Metoprolol Tartrate 50 MG Tablet PO SCH (20:04)
[2018-01-23] MEDS: Senna/Docusate Sodium 8.6/50 MG Tablet PO SCH (20:04)
[2018-01-23] MEDS: Escitalopram 10 MG Tablet PO SCH (20:04)
[2018-01-23] MEDS ORDERED: Naloxone Inj 0.4 MG/ML Vial IV.PUSH PRN (20:43)
[2018-01-23] MEDS ORDERED: Acetaminophen 325 MG Tablet PO PRN (20:43)
[2018-01-23] MEDS ORDERED: Morphine Inj 4 MG/ML Vial IV.PUSH PRN (20:43)
[2018-01-24 05:43] LABS: Hematocrit 26.9 % (39.0-51.0); Hemoglobin 8.9 gm/dL (13.0-17.0); Mean Corpuscular HGB Conc 32.9 % (32.0-36.0); Mean Corpuscular Hemoglobin 30.7 pg (27.0-34.0); Mean Corpuscular Volume 93.3 fL (80.0-100.0); Mean Platelet Volume 7.4 fL (7.0-11.0); Platelet Count 176 th/mm3 (150-450); Red Blood Count 2.89 mil/mm3 (4.50-5.90); Red Cell Distribution Width 18.7 % (11.6-17.2); White Blood Count 3.4 th/mm3 (4.0-11.0)
[2018-01-24 05:50] LABS: Anion Gap 14 meq/L (5-15); Blood Urea Nitrogen 13 mg/dL (7-18); Calcium 8.6 mg/dL (8.5-10.1); Carbon Dioxide 25.7 meq/L (21.0-32.0); Chloride 92 meq/L (98-107); Glomerular Filtration Rate 82 mL/min (>89); Glucose,Random 87 mg/dL (74-106); Potassium 3.2 meq/L (3.5-5.1); Sodium 132 meq/L (136-145)
[2018-01-24 05:52] LABS: Phosphorus 3.2 mg/dL (2.5-4.9)
[2018-01-24] MEDS: Escitalopram 10 MG Tablet PO SCH ×2 (08:01→20:40)
[2018-01-24] MEDS: Metoprolol Tartrate 50 MG Tablet PO SCH ×2 (08:01→20:41)
[2018-01-24] MEDS: Senna/Docusate Sodium 8.6/50 MG Tablet PO SCH ×2 (08:01→20:41)
[2018-01-24] MEDS: amLODIPine 5 MG Tablet PO SCH (08:01)
--- NOTE | 2018-01-24 09:03 | P.PNOP ---
Subjective Interval history: s/p fall approx 3 weeks ago with left wrist pain admitted for multiple falls and weakness reports left wrist pain. no other complaints Physical Exam Vital signs: Vital Signs 01/23/18 09:39 01/23/18 09:43 01/23/18 13:35 Temperature 98.3 F Pulse Rate 84 84 75 Respiratory Rate 12 17 17 Blood Pressure 148/74 H 165/89 H 148/72 H Pulse Oximetry 96 98 96 01/23/18 15:50 01/23/18 20:00 01/24/18 00:00 Temperature 99.0 F 98.1 F 97.9 F Pulse Rate 96 H 97 H 72 Respiratory Rate 20 18 18 Blood Pressure 152/79 H 143/87 H 139/76 Pulse Oximetry 96 97 96 01/24/18 04:00 Temperature 97.9 F Pulse Rate 80 Respiratory Rate 18 Blood Pressure 153/80 H Pulse Oximetry 96 Intake & Output 01/23/18 01/24/18 01/24/18 18:59 06:59 18:59 Intake Total 240 / 240 Balance 240 / 240 Weight 90.8 kg 89.2 kg Intake: Oral 240 / 240 Other: # Voids 3 # Bowel Movements 0 Weight On Admission 90.8 kg Narrative: LUE: +sugar tong splint. intact. NVI to median/ulnar nerve. Results - Labs CBC & Chem 7: 01/24/18 05:18 01/24/18 05:18 Laboratory Results - last 24 hr 01/23/18 01/23/18 01/23/18 11:00 11:00 17:37 WBC 4.5 RBC 2.73 L Hgb 8.3 L Hct 25.4 L MCV 93.0 MCH 30.6 MCHC 32.9 RDW 18.5 H Plt Count 197 MPV 7.4 Neut % (Auto) 76.7 H Lymph % (Auto) 10.8 Prentiss % (Auto) 11.6 H Eos % (Auto) 0.3 Baso % (Auto) 0.6 Neut # (Auto) 3.4 Lymph # (Auto) 0.5 L Prentiss # (Auto) 0.5 Eos # (Auto) 0.0 Baso # (Auto) 0.0 WBC Differential . Differential Comment Auto diff final Sodium 132 L Potassium 3.2 L Chloride 96 L Carbon Dioxide 20.1 L Anion Gap 16 H BUN 18 Creatinine 1.21 Estimated GFR 59 L Random Glucose 74 Calcium 8.2 L Phosphorus Magnesium Total Bilirubin 0.7 AST 76 H ALT 51 Alkaline Phosphatase 66 Troponin I Less than 0.02 L Less than 0.02 L Total Protein 7.3 Albumin 3.8 Vitamin B12 01/23/18 01/24/18 01/24/18 23:12 05:18 05:18 WBC 3.4 L RBC 2.89 L Hgb 8.9 L Hct 26.9 L MCV 93.3 MCH 30.7 MCHC 32.9 RDW 18.7 H Plt Count 176 MPV 7.4 Neut % (Auto) Lymph % (Auto) Prentiss % (Auto) Eos % (Auto) Baso % (Auto) Neut # (Auto) Lymph # (Auto) Prentiss # (Auto) Eos # (Auto) Baso # (Auto) WBC Differential Differential Comment Sodium 132 L Potassium 3.2 L Chloride 92 L Carbon Dioxide 25.7 Anion Gap 14 BUN 13 Creatinine 0.92 Estimated GFR 82 L Random Glucose 87 Calcium 8.6 Phosphorus 3.2 Magnesium 1.0 L Total Bilirubin AST ALT Alkaline Phosphatase Troponin I 0.02 Less than 0.02 L Total Protein Albumin Vitamin B12 Greater than 2000 H - Imaging Impressions Chest X-Ray 01/23/18 10:45 CONCLUSION: No acute cardiopulmonary disease. Head CT 01/23/18 10:45 CONCLUSION: 1. No acute hemorrhage or mass effect. 2. Moderate atrophy and extensive chronic small vessel ischemic changes. Wrist X-Ray 01/23/18 12:31 CONCLUSION: 1. Mildly comminuted fracture deformity of the distal radius. 2. Osteoarthritic change. Assessment and Plan - Assessment and Plan 1) Left Distal Radius Fx -treatment options discussed with patient. -think this will do well with nonop treatment -NWB -maintain splint at all times -resume diet -f/u outpatient basis with Dr Farmer -madelin wing for [facility]
--- NOTE | 2018-01-24 11:13 | P.PNFP ---
Subjective Interval history: Patient seen and examined this morning. Denies nausea, vomiting, fever, chills, lightheadedness, dizziness. Reports he had pain in his left arm where the fracture is, relieved following pain medication administration. Denies any additional weakness, chest pain, palpitations, left arm or jaw pain, shortness of breath, headache. No other complaints today. <MarkRoge - 01/24/18 11:13> Results - Labs Result diagrams: 01/24/18 05:18 01/24/18 05:18 <Chevy Hernandez - 01/24/18 16:42> Abnormal lab results 01/23/18 01/24/18 01/24/18 Range/Units 17:37 05:18 05:18 WBC 3.4 L (4.0-11.0) th/mm3 RBC 2.89 L (4.50-5.90) mil/mm3 Hgb 8.9 L (13.0-17.0) gm/dL Hct 26.9 L (39.0-51.0) % RDW 18.7 H (11.6-17.2) % Sodium 132 L (136-145) meq/L Potassium 3.2 L (3.5-5.1) meq/L Chloride 92 L (98-107) meq/L Estimated GFR 82 L (>89) mL/min Magnesium 1.0 L (1.5-2.5) mg/dL Troponin I Less than 0.02 L Less than 0.02 L (0.02-0.05) ng/mL Vitamin B12 Greater than 2000 H (193-986) pg/mL Short CBC 01/24/18 Range/Units 05:18 WBC 3.4 L (4.0-11.0) th/mm3 Hgb 8.9 L (13.0-17.0) gm/dL Hct 26.9 L (39.0-51.0) % Plt Count 176 (150-450) th/mm3 BMP 01/24/18 05:18 Sodium 132 L Potassium 3.2 L Chloride 92 L Carbon Dioxide 25.7 BUN 13 Creatinine 0.92 Calcium 8.6 Cardiac Enzymes 01/23/18 01/23/18 01/24/18 Range/Units 17:37 23:12 05:18 Troponin I Less than 0.02 L 0.02 Less than 0.02 L (0.02-0.05) ng/mL <Chevy Hernandez - 01/24/18 16:42> Abnormal lab results 01/23/18 01/23/18 01/23/18 Range/Units 11:00 11:00 17:37 WBC (4.0-11.0) th/mm3 RBC 2.73 L (4.50-5.90) mil/mm3 Hgb 8.3 L (13.0-17.0) gm/dL Hct 25.4 L (39.0-51.0) % RDW 18.5 H (11.6-17.2) % Neut % (Auto) 76.7 H (16.0-70.0) % Otero % (Auto) 11.6 H (0.0-8.0) % Lymph # (Auto) 0.5 L (1.0-4.8) th/mm3 Sodium 132 L (136-145) meq/L Potassium 3.2 L (3.5-5.1) meq/L Chloride 96 L (98-107) meq/L Carbon Dioxide 20.1 L (21.0-32.0) meq/L Anion Gap 16 H (5-15) meq/L Estimated GFR 59 L (>89) mL/min Calcium 8.2 L (8.5-10.1) mg/dL Magnesium (1.5-2.5) mg/dL AST 76 H (15-37) U/L Troponin I Less than 0.02 L Less than 0.02 L (0.02-0.05) ng/mL Vitamin B12 (193-986) pg/mL 01/24/18 01/24/18 Range/Units 05:18 05:18 WBC 3.4 L (4.0-11.0) th/mm3 RBC 2.89 L (4.50-5.90) mil/mm3 Hgb 8.9 L (13.0-17.0) gm/dL Hct 26.9 L (39.0-51.0) % RDW 18.7 H (11.6-17.2) % Neut % (Auto) (16.0-70.0) % Otero % (Auto) (0.0-8.0) % Lymph # (Auto) (1.0-4.8) th/mm3 Sodium 132 L (136-145) meq/L Potassium 3.2 L (3.5-5.1) meq/L Chloride 92 L (98-107) meq/L Carbon Dioxide (21.0-32.0) meq/L Anion Gap (5-15) meq/L Estimated GFR 82 L (>89) mL/min Calcium (8.5-10.1) mg/dL Magnesium 1.0 L (1.5-2.5) mg/dL AST (15-37) U/L Troponin I Less than 0.02 L (0.02-0.05) ng/mL Vitamin B12 Greater than 2000 H (193-986) pg/mL Short CBC 01/23/18 01/24/18 Range/Units 11:00 05:18 WBC 4.5 3.4 L (4.0-11.0) th/mm3 Hgb 8.3 L 8.9 L (13.0-17.0) gm/dL Hct 25.4 L 26.9 L (39.0-51.0) % Plt Count 197 176 (150-450) th/mm3 BMP 01/23/18 01/24/18 11:00 05:18 Sodium 132 L 132 L Potassium 3.2 L 3.2 L Chloride 96 L 92 L Carbon Dioxide 20.1 L 25.7 BUN 18 13 Creatinine 1.21 0.92 Calcium 8.2 L 8.6 Cardiac Enzymes 01/23/18 01/23/18 01/23/18 Range/Units 11:00 17:37 23:12 Troponin I Less than 0.02 L Less than 0.02 L 0.02 (0.02-0.05) ng/mL 01/24/18 Range/Units 05:18 Troponin I Less than 0.02 L (0.02-0.05) ng/mL Liver Function 01/23/18 Range/Units 11:00 Total Bilirubin 0.7 (0.2-1.0) mg/dL AST 76 H (15-37) U/L ALT 51 (12-78) U/L Alkaline Phosphatase 66 (45-117) U/L Albumin 3.8 (3.4-5.0) g/dL <Faille,Wesley - 01/24/18 11:13> - Imaging Impressions Head MRI 01/24/18 00:00 CONCLUSION: No evidence of acute intracranial pathology. Chronic ischemic changes as above. <Chevy Hernandez - 01/24/18 16:42> Impressions Chest X-Ray 01/23/18 10:45 CONCLUSION: No acute cardiopulmonary disease. Head CT 01/23/18 10:45 CONCLUSION: 1. No acute hemorrhage or mass effect. 2. Moderate atrophy and extensive chronic small vessel ischemic changes. Wrist X-Ray 01/23/18 12:31 CONCLUSION: 1. Mildly comminuted fracture deformity of the distal radius. 2. Osteoarthritic change. <Roge Flores - 01/24/18 11:13> Physical Exam Vital signs: Vital Signs 01/23/18 20:00 01/24/18 00:00 01/24/18 04:00 Temperature 98.1 F 97.9 F 97.9 F Pulse Rate 97 H 72 80 Respiratory Rate 18 18 18 Blood Pressure 143/87 H 139/76 153/80 H Pulse Oximetry 97 96 96 01/24/18 08:00 01/24/18 12:00 Temperature 98.3 F 97.1 F L Pulse Rate 76 75 Respiratory Rate 20 20 Blood Pressure 157/78 H 146/66 H Pulse Oximetry 95 97 Intake & Output 01/23/18 01/24/18 01/24/18 18:59 06:59 18:59 Intake Total 240 / 240 Balance 240 / 240 Weight 90.8 kg 89.2 kg Intake: Oral 240 / 240 Other: # Voids 3 # Bowel Movements 0 Weight On Admission 90.8 kg <Chevy Hernandez - 01/24/18 16:42> Vital Signs 01/23/18 13:35 01/23/18 15:50 01/23/18 20:00 Temperature 99.0 F 98.1 F Pulse Rate 75 96 H 97 H Respiratory Rate 17 20 18 Blood Pressure 148/72 H 152/79 H 143/87 H Pulse Oximetry 96 96 97 01/24/18 00:00 01/24/18 04:00 01/24/18 08:00 Temperature 97.9 F 97.9 F 98.3 F Pulse Rate 72 80 76 Respiratory Rate 18 18 20 Blood Pressure 139/76 153/80 H 157/78 H Pulse Oximetry 96 96 95 Intake & Output 01/23/18 01/24/18 01/24/18 18:59 06:59 18:59 Intake Total 240 / 240 Balance 240 / 240 Weight 90.8 kg 89.2 kg Intake: Oral 240 / 240 Other: # Voids 3 # Bowel Movements 0 Weight On Admission 90.8 kg <Roge Flores - 01/24/18 11:13> Narrative: GENERAL: Laying in bed, no acute distress SKIN: Warm and dry. Many ecchymoses, skin tears. HEAD: Normocephalic. EYES: No scleral icterus. No injection or drainage. NECK: Supple, trachea midline. No JVD or lymphadenopathy. CARDIOVASCULAR: Regular rate and rhythm without murmurs, gallops, or rubs. RESPIRATORY: Breath sounds equal bilaterally. No accessory muscle use. GASTROINTESTINAL: Abdomen soft, non-tender, nondistended. MUSCULOSKELETAL: No cyanosis, or edema. Left lower arm in clean dry intact splint. Neurovascularly intact. BACK: Nontender without obvious deformity. No CVA tenderness. <Roge Flores - 01/24/18 11:13> Assessment and Plan - Assessment (1) Weakness Code(s): R53.1 - Weakness Status: Acute (2) Multiple falls Code(s): R29.6 - Repeated falls Status: Acute (3) Left radial fracture Code(s): S52.92XA - Unspecified fracture of left forearm, initial encounter for closed fracture Status: Acute (4) Alcohol abuse Code(s): F10.10 - Alcohol abuse, uncomplicated Status: Chronic (5) Hypertension Code(s): I10 - Essential (primary) hypertension Status: Acute (6) Hyperlipidemia Code(s): E78.5 - Hyperlipidemia, unspecified Status: Acute (7) Depression Code(s): F32.9 - Major depressive disorder, single episode, unspecified Status : Acute (8) History of coronary artery bypass graft Code(s): Z95.1 - Presence of aortocoronary bypass graft Status: Acute (9) Claudication Code(s): I73.9 - Peripheral vascular disease, unspecified Status: Acute (10) Nutrition, metabolism, and development symptoms Code(s): R63.8 - Other symptoms and signs concerning food and fluid intake Status: Acute <Chevy Hernandez - 01/24/18 16:42> (1) Weakness Code(s): R53.1 - Weakness Status: Acute Plan: Likely multifactorial with progressive weakness due to heavy alcohol intake and poor nutrition. Troponins, EKGs negative. 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 Has opted for nonsurgical treatment. Currently in splint. (4) Alcohol abuse Code(s): F10.10 - Alcohol abuse, uncomplicated Status: Chronic Plan: Heavy history of alcohol abuse and CT of the brain shows diffuse atrophy Monitor for signs of withdrawal CIWA protocol in place (5) Hypertension Code(s): I10 - Essential (primary) hypertension Status: Acute Plan: History of hypertension -Continue home metoprolol 50 mg p.o. twice daily, amlodipine 5 mg's daily (6) Hyperlipidemia Code(s): E78.5 - Hyperlipidemia, unspecified Status: Acute Plan: History of hyperlipidemia -Continue home rosuvastatin 5 mg daily (7) Depression Code(s): F32.9 - Major depressive disorder, single episode, unspecified Status : Acute Plan: History of depression -Continue home Lexapro 10 mg p.o. twice daily (8) History of coronary artery bypass graft Code(s): Z95.1 - Presence of aortocoronary bypass graft Status: Acute Plan: Reports a history of four-vessel CABG in 2006. -Continue home medications aspirin 81 mg p.o. daily, Plavix 75 mg p.o. every other day (9) Claudication Code(s): I73.9 - Peripheral vascular disease, unspecified Status: Acute Plan: History of chronic claudication. No recent increase in symptoms. Reports he has been worked up outpatient for this with no intervention. -Continue Pletal 100 mg p.o. twice daily (10) Nutrition, metabolism, and development symptoms Code(s): R63.8 - Other symptoms and signs concerning food and fluid intake Status: Acute Plan: Fluids: Tolerating p.o. Electrolytes: Monitor and replete as needed Nutrition: Tolerating p.o., will need n.p.o. if going to surgery <Roge Flores - 01/24/18 11:04> - Attending Attestation Pt. examined independently and case discussed with resident physicians I have read the above note and agree with the assessment/plan as discussed with me I was involved in all medical decision making for this patient Chevy Hernandez MD <Chevy Hernandez - 01/24/18 16:42>
--- NOTE | 2018-01-24 13:03 | MR ---
EXAM DATE: 01/24/2018 12:32 PM EDT AGE/SEX: 67 years / Male INDICATIONS: . Frequent falls. CLINICAL DATA: This is the patient's subsequent encounter. Patient reports that signs and symptoms h ave been present for 2 days and indicates a pain score of 0/10. MEDICAL/SURGICAL HISTORY: Hypertension. CABG. AAA repair, hernia COMPARISON: No prior exams available for comparison. TECHNIQUE: Multiplanar, multisequence examination of the brain was performed without contrast. FINDINGS: MRI of the brain is performed in sagittal, axial and coronal planes. The craniocervical junction and midline structures are unremarkable. Diffusion weighted images demonstrate no abnormality. No acute c ortical infarction, acute hemorrhage, mass effect or midline shift is seen.The ventricles are large w ith a prominent sulcal pattern compatible with atrophy. There is periventricular hyperintensity on th e T2 weighted images consistent with small vessel vascular disease significantly more than expected i n a patient of this age. Posterior fossa structures are unremarkable. CONCLUSION: No evidence of acute intracranial pathology. Chronic ischemic changes as above. Electronically signed by: Shawn Braxton MD 01/24/2018 1:02 PM EDT
--- NOTE | 2018-01-24 13:11 | MB ---
cc: Yovany Farmer MD DATE: 01/24/2018 REASON FOR CONSULTATION: Left distal radius fracture. HISTORY OF PRESENT ILLNESS: Prince is a 67-year-old male who presented to the emergency room complaining of progressive weakness and multiple falls. He has had multiple falls at home. He fell approximately 3 weeks ago and had some left wrist pain. He thought it was a sprain. He fell again approximately 1 week ago and had increased wrist pain. He denies dizziness, syncope or loss of consciousness. He describes mechanical falls. He did not seek medical treatment for his wrist injury until he came to the hospital. Pain is worse with movement. He is retired. He does drink alcohol daily. Wrist pain is worse with movement and is improved with rest. PAST MEDICAL HISTORY: Hypertension, alcohol abuse, high cholesterol, depression, coronary artery disease, claudication. PAST SURGICAL HISTORY: AAA repair, quadruple bypass, ventral hernia repair. ALLERGIES: NO KNOWN DRUG ALLERGIES. MEDICATIONS: Please see EMR for complete list of admission medications. This was reviewed. FAMILY HISTORY: Positive for diabetes in the mother and coronary artery disease in the father. SOCIAL HISTORY: The patient drinks vodka every day. He quit smoking. He denies drug use. REVIEW OF SYSTEMS: The patient denies fevers, chills, weight loss, headache, visual changes, hearing loss, chest pain, palpitations, shortness of breath, nausea, vomiting, urinary changes, diarrhea, bowel changes, neck pain, back pain, skin rashes, weakness, numbness of extremities, anxiety or depression. He complains of left wrist pain. LABORATORY DATA: White blood cell count is 3.4. Hematocrit is 26.9, platelet count is 176, potassium is 3.2. Sodium is 132, creatinine is 1.12. X-RAYS: X-rays of the left wrist were reviewed. X-rays revealed a mildly impacted left distal radius fracture. There is shortening of the radius. The articular surface is relatively well aligned. PHYSICAL EXAMINATION: GENERAL: The patient is a well-developed, well-nourished, 67-year-old male. His is at bedside. He appears mildly overweight. He is in no acute distress. VITAL SIGNS: Temperature 97.9, pulse 80, respirations 18, blood pressure 153/80, O2 saturation 96% on room air. HEENT: Head: The patient is normocephalic. Pupils are equal. NECK: Soft, nontender. The trachea is in the midline. ABDOMEN: Soft, nontender, nondistended. EXTREMITIES: Examination of right arm reveals no pain with shoulder, elbow or wrist motion. Skin is intact. Radial pulses palpable, sensation intact. Exam of the left arm reveals no pain with shoulder or elbow motion. He has mild tenderness over his wrist. Skin is intact. Good capillary refill in his fingers. He has minimal pain with gentle finger range of motion. Examination of bilateral lower extremities reveals no pain with hip, knee or ankle motion. Skin is intact. Sensation is intact to both feet. Dorsalis pedis pulses are palpable bilaterally. IMPRESSION: 1. Multiple recent falls. 2. Mildly displaced left distal radius fracture. 3. Hypertension. 4. Coronary artery disease. 5. Alcohol abuse. PLAN: Treatment options were discussed with the patient. I discussed surgical and nonsurgical options. I explained to the patient that the fracture is relatively well aligned; however, there is shortening of the radius relative to the ulna. This could lead to chronic wrist pain and degenerative changes. He states that he is very sedentary. He has retired. He is inactive and does not use his left arm from any activities. He would like to avoid surgery if possible. I explained to him that surgery would likely yield a better functional outcome, but nonsurgical options would be reasonable, given his sedentary lifestyle and multiple medical problems. The patient would like to proceed with conservative treatment. He will remain in a splint. He will follow up in office in 1-2 weeks for repeat x-rays. At that point, I placed him into a short arm cast. All questions were answered. A mid-level provider in my office, nurse practitioner or PA, may see this patient on a follow-up basis and continue to implement the objective of this plan including: Starting or adjusting medications, injections of muscle, tendon, bursa or joints, cast application, orthotic or brace application, physical therapy, further radiographic studies including x-ray, MRI, CT, ultrasounds or bone scan, vascular studies, neurologic studies, or other specialist consultations, and proceeding with surgical management as appropriate. MD JESÚS Michelle/ronnell , 09:36 AM , 09:46 AM
--- NOTE | 2018-01-24 18:49 | ECG ---
Date Performed: 01/23/2018 Time Performed: 22:02:02 PTAGE: 67 years EKG: Sinus rhythm INFERIOR MYOCARDIAL INFARCTION , OF INDETERMINATE AGE ABNORMAL ECG PREVIOUS TRACING : 01/23/2018 17.44 Since the previous tracing, no significant change noted DOCTOR: Aki Presley Interpretating Date/Time 01/24/2018 18:47:33
--- NOTE | 2018-01-24 18:57 | ECG ---
Date Performed: 01/23/2018 Time Performed: 17:44:12 PTAGE: 67 years EKG: Sinus rhythm WITH FIRST DEGREE AV BLOCK INFERIOR MYOCARDIAL INFARCTION , PROBABLY OLD ABNORMAL ECG PREVIOUS TRACING : 01/23/2018 09.38 Since the previous tracing, no significant change noted DOCTOR: Aki Presley Interpretating Date/Time 01/24/2018 18:56:43
--- NOTE | 2018-01-25 09:11 | P.PNFP ---
Subjective Interval history: Patient seen and examined this morning. No acute events overnight. Reports that he was able to get up with PT yesterday and moved to the chair, however he still feels weak. Denies nausea, vomiting, fever, chills , vomiting, chest pain, palpitations, shortness of breath, lightheadedness, dizziness, changes in bowel or bladder habits. No other complaints today. <MarkRoge - 01/25/18 10:16> Results - Labs Result diagrams: 01/25/18 08:38 01/25/18 08:38 <Chevy Hernandez - 01/25/18 17:47> Abnormal lab results 01/24/18 01/24/18 01/25/18 Range/Units 19:54 19:54 08:38 WBC 3.6 L (4.0-11.0) th/mm3 RBC 3.00 L (4.50-5.90) mil/mm3 Hgb 9.2 L (13.0-17.0) gm/dL Hct 27.9 L (39.0-51.0) % RDW 18.5 H (11.6-17.2) % Sodium (136-145) meq/L Potassium (3.5-5.1) meq/L Chloride (98-107) meq/L BUN (7-18) mg/dL Estimated GFR (>89) mL/min Magnesium 0.9 L (1.5-2.5) mg/dL Troponin I Less than 0.02 L (0.02-0.05) ng/mL 01/25/18 Range/Units 08:38 WBC (4.0-11.0) th/mm3 RBC (4.50-5.90) mil/mm3 Hgb (13.0-17.0) gm/dL Hct (39.0-51.0) % RDW (11.6-17.2) % Sodium 134 L (136-145) meq/L Potassium 3.0 L (3.5-5.1) meq/L Chloride 94 L (98-107) meq/L BUN 22 H (7-18) mg/dL Estimated GFR 60 L (>89) mL/min Magnesium 1.1 L (1.5-2.5) mg/dL Troponin I (0.02-0.05) ng/mL Short CBC 01/25/18 Range/Units 08:38 WBC 3.6 L (4.0-11.0) th/mm3 Hgb 9.2 L (13.0-17.0) gm/dL Hct 27.9 L (39.0-51.0) % Plt Count 172 (150-450) th/mm3 BMP 01/25/18 08:38 Sodium 134 L Potassium 3.0 L Chloride 94 L Carbon Dioxide 28.1 BUN 22 H Creatinine 1.20 Calcium 8.7 Cardiac Enzymes 01/24/18 Range/Units 19:54 Troponin I Less than 0.02 L (0.02-0.05) ng/mL <Chevy Hernandez - 01/25/18 17:47> Abnormal lab results 01/24/18 01/24/18 Range/Units 19:54 19:54 Magnesium 0.9 L (1.5-2.5) mg/dL Troponin I Less than 0.02 L (0.02-0.05) ng/mL Cardiac Enzymes 01/24/18 Range/Units 19:54 Troponin I Less than 0.02 L (0.02-0.05) ng/mL <Roge Flores - 01/25/18 09:11> - Imaging Impressions Lumbar Spine MRI 01/25/18 00:00 CONCLUSION: <Chevy Hernandez 01/25/18 17:47> Impressions Head MRI 01/24/18 00:00 CONCLUSION: No evidence of acute intracranial pathology. Chronic ischemic changes as above. <Roge Flores - 01/25/18 09:11> Physical Exam Vital signs: Vital Signs 01/24/18 20:00 01/25/18 00:00 01/25/18 04:00 Temperature 98.1 F 98.6 F 97.8 F Pulse Rate 112 H 93 H 84 Respiratory Rate 18 18 18 Blood Pressure 108/71 145/74 H 122/75 Pulse Oximetry 96 94 L 93 L 01/25/18 08:00 01/25/18 10:00 01/25/18 12:00 Temperature 98.1 F 98.2 F Pulse Rate 80 82 Respiratory Rate 16 16 16 Blood Pressure 153/84 H 89/54 L Pulse Oximetry 97 94 L Intake & Output 01/24/18 01/25/18 01/25/18 18:59 06:59 18:59 Intake Total 720 / 720 240 / 240 Balance 720 / 720 240 / 240 Weight 90.6 kg Intake: Oral 720 / 720 240 / 240 Other: # Voids 3 1 # Bowel Movements 0 <MaryChevy - 01/25/18 17:47> Vital Signs 01/24/18 12:00 01/24/18 16:00 01/24/18 20:00 Temperature 97.1 F L 98.5 F 98.1 F Pulse Rate 72 88 112 H Respiratory Rate 20 20 18 Blood Pressure 146/66 H 126/71 108/71 Pulse Oximetry 97 93 L 96 01/25/18 00:00 01/25/18 04:00 Temperature 98.6 F 97.8 F Pulse Rate 93 H 84 Respiratory Rate 18 18 Blood Pressure 145/74 H 122/75 Pulse Oximetry 94 L 93 L Intake & Output 01/24/18 01/25/18 01/25/18 18:59 06:59 18:59 Intake Total 720 / 720 240 / 240 Balance 720 / 720 240 / 240 Weight 90.6 kg Intake: Oral 720 / 720 240 / 240 Other: # Voids 3 1 # Bowel Movements 0 <Roge Flores - 01/25/18 09:11> Narrative: GENERAL: Laying in bed, no acute distress SKIN: Warm and dry. Many ecchymoses, skin tears. HEAD: Normocephalic. EYES: No scleral icterus. No injection or drainage. NECK: Supple, trachea midline. No JVD or lymphadenopathy. CARDIOVASCULAR: Regular rate and rhythm without murmurs, gallops, or rubs. RESPIRATORY: Breath sounds equal bilaterally. No accessory muscle use. GASTROINTESTINAL: Abdomen soft, non-tender, nondistended. MUSCULOSKELETAL: No cyanosis, or edema. Left lower arm in clean dry intact splint. Neurovascularly intact. BACK: Nontender without obvious deformity. No CVA tenderness. <Roge Flores 01/25/18 10:16> Assessment and Plan - Assessment (1) Weakness Code(s): R53.1 - Weakness Status: Acute (2) Multiple falls Code(s): R29.6 - Repeated falls Status: Acute (3) Left radial fracture Code(s): S52.92XA - Unspecified fracture of left forearm, initial encounter for closed fracture Status: Acute (4) Alcohol abuse Code(s): F10.10 - Alcohol abuse, uncomplicated Status: Chronic (5) Hypertension Code(s): I10 - Essential (primary) hypertension Status: Acute (6) Hyperlipidemia Code(s): E78.5 - Hyperlipidemia, unspecified Status: Acute (7) Depression Code(s): F32.9 - Major depressive disorder, single episode, unspecified Status : Acute (8) History of coronary artery bypass graft Code(s): Z95.1 - Presence of aortocoronary bypass graft Status: Acute (9) Claudication Code(s): I73.9 - Peripheral vascular disease, unspecified Status: Acute (10) Nutrition, metabolism, and development symptoms Code(s): R63.8 - Other symptoms and signs concerning food and fluid intake Status: Acute <Chevy Hernandez - 01/25/18 17:47> (1) Weakness Code(s): R53.1 - Weakness Status: Acute Plan: Likely multifactorial with progressive weakness due to heavy alcohol intake and poor nutrition. Troponins, EKGs negative. MRI without acute pathology. Continues to have weakness. -Possible cardiovascular versus neurologic cause -Echocardiogram ordered and pending -Monitor on telemetry -Monitor electrolytes and correct them as needed PT/OT ordered to evaluate patient twice daily Case management ordered to assist with probable placement. Placement issues due to observation status and Medicare insurance. Not safe to discharge home at this time. (2) Multiple falls Code(s): R29.6 - Repeated falls Status: Acute Plan: See plan for weakness (3) Left radial fracture Code(s): S52.92XA - Unspecified fracture of left forearm, initial encounter for closed fracture Status: Acute Plan: Patient discussed surgical versus nonsurgical options with orthopedics. Has opted for nonsurgical treatment. Currently in splint. (4) Alcohol abuse Code(s): F10.10 - Alcohol abuse, uncomplicated Status: Chronic Plan: Heavy history of alcohol abuse and CT of the brain shows diffuse atrophy Monitor for signs of withdrawal CIWA protocol in place (5) Hypertension Code(s): I10 - Essential (primary) hypertension Status: Acute Plan: History of hypertension -Continue home metoprolol 50 mg p.o. twice daily, amlodipine 5 mg's daily (6) Hyperlipidemia Code(s): E78.5 - Hyperlipidemia, unspecified Status: Acute Plan: History of hyperlipidemia -Continue home rosuvastatin 5 mg daily (7) Depression Code(s): F32.9 - Major depressive disorder, single episode, unspecified Status : Acute Plan: History of depression -Continue home Lexapro 10 mg p.o. twice daily (8) History of coronary artery bypass graft Code(s): Z95.1 - Presence of aortocoronary bypass graft Status: Acute Plan: Reports a history of four-vessel CABG in 2006. -Continue home medications aspirin 81 mg p.o. daily, Plavix 75 mg p.o. every other day (9) Claudication Code(s): I73.9 - Peripheral vascular disease, unspecified Status: Acute Plan: History of chronic claudication. No recent increase in symptoms. Reports he has been worked up outpatient for this with no intervention. -Continue Pletal 100 mg p.o. twice daily (10) Nutrition, metabolism, and development symptoms Code(s): R63.8 - Other symptoms and signs concerning food and fluid intake Status: Acute Plan: Fluids: Tolerating p.o. Electrolytes: Monitor and replete as needed Nutrition: Tolerating p.o., will need n.p.o. if going to surgery <Roge Flores - 01/25/18 10:11> - Attending Attestation Patient examined independently and case discussed with resident physicians I have read the above note and agree with the assessment/plan as discussed with me I was involved in all medical decision making for this patient Given significant lower extremity weakness, we will obtain a lumbar spine MRI to rule out neurogenic causes such as severe lumbar stenosis or nerve compression -We will have PT continue to work with patient while here Chevy Hernandez MD <Chevy Hernandez - 01/25/18 17:47>
[2018-01-25] MEDS: Metoprolol Tartrate 50 MG Tablet PO SCH ×2 (09:14→22:13)
[2018-01-25] MEDS: Escitalopram 10 MG Tablet PO SCH ×2 (09:14→22:13)
[2018-01-25] MEDS: amLODIPine 5 MG Tablet PO SCH (09:15)
[2018-01-25] MEDS: Senna/Docusate Sodium 8.6/50 MG Tablet PO SCH ×2 (09:15→22:13)
[2018-01-25 09:40] LABS: Hematocrit 27.9 % (39.0-51.0); Hemoglobin 9.2 gm/dL (13.0-17.0); Mean Corpuscular HGB Conc 32.8 % (32.0-36.0); Mean Corpuscular Hemoglobin 30.5 pg (27.0-34.0); Mean Platelet Volume 7.8 fL (7.0-11.0); Platelet Count 172 th/mm3 (150-450); Red Cell Distribution Width 18.5 % (11.6-17.2); White Blood Count 3.6 th/mm3 (4.0-11.0)
[2018-01-25 10:23] LABS: Calcium 8.7 mg/dL (8.5-10.1); Carbon Dioxide 28.1 meq/L (21.0-32.0)
--- NOTE | 2018-01-25 11:41 | MR ---
EXAM DATE: 01/25/2018 11:25 AM EDT AGE/SEX: 67 years / Male INDICATIONS: . Back pain after fall. CLINICAL DATA: This is the patient's subsequent encounter. Patient reports that signs and symptoms h ave been present for 2 days and indicates a pain score of 2/10. MEDICAL/SURGICAL HISTORY: Hypertension. Abdominal aortic aneurysm repair. CABG. Umbilical her lily repair. COMPARISON: No prior exams available for comparison. TECHNIQUE: Multiplanar, multisequence MRI of the lumbar spine was performed without contrast. Patie nt was scanned in a sitting position; neutral, flexion, and extension scans were performed in the sa gittal plane. FINDINGS: Vertebra: Linear edema paralleling the superior endplate of the L1 vertebral body. Minimal loss of h eight of the superior endplate. Modic type I endplate changes seen at L3-L4. Remaining marrow signal is homogeneous.. Conus: Normal level and configuration. T12-L1: The thecal sac has a normal diameter. No evidence of disc bulge or protrusion. The neural foramina are patent bilaterally. L1-L2: Disc desiccation. The thecal sac has a normal diameter. No evidence of disc bulge or protru jered. The neural foramina are patent bilaterally. L2-L3: Disc desiccation. Mild broad-based disc bulge. Mild bony hypertrophy of the facets. Lateral recesses and central canal are patent. Neural foramina are patent. L3-L4: Disc desiccation and disc space narrowing with a mild broad-based disc bulge. Mild bony hype rtrophy and ligamentum flavum hypertrophy of the facets but more robust on the right. Narrowing of th e central canal with the anterior to posterior dimension in the midline measuring 7 mm. Neural forami na are patent bilaterally. L4-L5: Disc desiccation and disc space narrowing with a mild broad-based disc bulge. Mild ligamentu m flavum hypertrophy and bony hypertrophy of the facets. Mild narrowing of the central canal measurin g 7 mm in the midline. Narrowing of the neural foramina bilaterally without overt impingement. L5-S1: The thecal sac has a normal diameter. No evidence of disc bulge or protrusion. The neural foramina are patent bilaterally. 1. Mild acute compression fracture involving the superior endplate of L1. No retropulsion. Loss of h eight is approximately 10%. 2. Multilevel degenerative changes most pronounced at L3-L4 and L4-L5. This involves narrowing of th e central canal. Each level detailed in the above discussion. Electronically signed by: Ej Honeycutt MD 01/25/2018 11:40 AM EDT
[2018-01-25 12:24] LABS: Magnesium 1.1 mg/dL (1.5-2.5)
--- NOTE | 2018-01-25 17:44 | ECHRPT ---
Indication: CVA/TIA CONCLUSIONS Normal left ventricular size. Wall thickness is measured at the upper limits of normal. The left ventricular systolic function is hyperdynamic with an estimated ejection fraction in the ra nge of 65- 70%. Mitral annular calcification is present. Aortic valve sclerosis is present. The estimated pulmonary arterial pressure is 41 mmHg. BP: / HR: Rhythm: MEASUREMENTS (Male / Female) Normal Values Technical Quality: 2D ECHO LV Diastolic Diameter PLAX 4.5 cm 4.2 - 5.9 / 3.9 - 5.3 cm LV Systolic Diameter PLAX 3.2 cm IVS Diastolic Thickness 1.3 cm 0.6 - 1.0 / 0.6 - 0.9 cm LVPW Diastolic Thickness 0.7 cm 0.6 - 1.0 / 0.6 - 0.9 cm LV Relative Wall Thickness 0.5 RV Internal Dim ED PLAX 2.0 cm DOPPLER Mitral E Point Velocity 83.3 cm/s Mitral A Point Velocity 69.1 cm/s Mitral E to A Ratio 1.2 TR Peak Velocity 277.0 cm/s TR Peak Gradient 30.7 mmHg Right Atrial Pressure 10.0 mmHg Pulmonary Artery Systolic Pressu 40.7 mmHg Right Ventricular Systolic Press 40.7 mmHg FINDINGS LEFT VENTRICLE Normal left ventricular size. Wall thickness is measured at the upper limits of normal. The left ventricular systolic function is hyperdynamic with an estimated ejection fraction in the ra nge of 65- 70%. RIGHT VENTRICLE Normal right ventricular size and systolic function. LEFT ATRIUM The left atrial size is normal. RIGHT ATRIUM The right atrial size is normal. ATRIAL SEPTUM Normal atrial septal thickness without atrial level shunting by limited color doppler interrogation. AORTA The aortic root and proximal ascending aorta are normal in size on limited imaging. MITRAL VALVE Mitral annular calcification is present. AORTIC VALVE Aortic valve sclerosis is present. TRICUSPID VALVE The estimated pulmonary arterial pressure is 41 mmHg. PULMONARY VALVE No pulmonary valve regurgitation or stenosis. VESSELS The inferior vena cava is normal in size. PERICARDIUM No pericardial effusion. Gareth Acuna MD, FACC, FSCAI (Electronically Signed) Final Date:25 January 2018 17:43
[2018-01-26] MEDS: Metoprolol Tartrate 50 MG Tablet PO SCH ×3 (08:17→20:18)
[2018-01-26] MEDS: amLODIPine 5 MG Tablet PO SCH ×2 (08:17→09:04)
[2018-01-26 08:24] LABS: Calcium 8.8 mg/dL (8.5-10.1); Carbon Dioxide 27.7 meq/L (21.0-32.0); Magnesium 1.1 mg/dL (1.5-2.5)
[2018-01-26] MEDS: Senna/Docusate Sodium 8.6/50 MG Tablet PO SCH ×2 (08:26→20:18)
[2018-01-26] MEDS: Escitalopram 10 MG Tablet PO SCH ×2 (08:27→20:18)
--- NOTE | 2018-01-26 09:36 | P.PNFP ---
Subjective Interval history: Patient seen and examined this morning. No acute events overnight. Denies nausea, vomiting, fever, chills, abdominal pain, chest pain, shortness of breath. Believes his weaknesses mildly improved today. Was able to walk to the bathroom twice yesterday with assistance from nursing. Eager to go home. <MarkRoge - 01/26/18 09:36> Results - Labs Result diagrams: 01/25/18 08:38 01/26/18 05:50 <Chevy Hernandez - 01/26/18 13:28> Abnormal lab results 01/26/18 Range/Units 05:50 Sodium 133 L (136-145) meq/L Potassium 3.0 L (3.5-5.1) meq/L Chloride 95 L (98-107) meq/L BUN 22 H (7-18) mg/dL Estimated GFR 66 L (>89) mL/min Magnesium 1.1 L (1.5-2.5) mg/dL BMP 01/26/18 05:50 Sodium 133 L Potassium 3.0 L Chloride 95 L Carbon Dioxide 27.7 BUN 22 H Creatinine 1.11 Calcium 8.8 <Chevy Hernandez - 01/26/18 13:28> Abnormal lab results 01/25/18 01/25/18 01/26/18 Range/Units 08:38 08:38 05:50 WBC 3.6 L (4.0-11.0) th/mm3 RBC 3.00 L (4.50-5.90) mil/mm3 Hgb 9.2 L (13.0-17.0) gm/dL Hct 27.9 L (39.0-51.0) % RDW 18.5 H (11.6-17.2) % Sodium 134 L 133 L (136-145) meq/L Potassium 3.0 L 3.0 L (3.5-5.1) meq/L Chloride 94 L 95 L (98-107) meq/L BUN 22 H 22 H (7-18) mg/dL Estimated GFR 60 L 66 L (>89) mL/min Magnesium 1.1 L 1.1 L (1.5-2.5) mg/dL Short CBC 01/25/18 Range/Units 08:38 WBC 3.6 L (4.0-11.0) th/mm3 Hgb 9.2 L (13.0-17.0) gm/dL Hct 27.9 L (39.0-51.0) % Plt Count 172 (150-450) th/mm3 BMP 01/25/18 01/26/18 08:38 05:50 Sodium 134 L 133 L Potassium 3.0 L 3.0 L Chloride 94 L 95 L Carbon Dioxide 28.1 27.7 BUN 22 H 22 H Creatinine 1.20 1.11 Calcium 8.7 8.8 <Roge Flores - 01/26/18 09:36> - Imaging Impressions Lumbar Spine MRI 01/25/18 00:00 CONCLUSION: <Roge Flores - 01/26/18 09:36> Physical Exam Vital signs: Vital Signs 01/25/18 16:00 01/25/18 20:00 01/26/18 00:00 Temperature 97.4 F L 98.5 F 98 F Pulse Rate 81 92 H 72 Respiratory Rate 16 18 18 Blood Pressure 143/71 H 111/70 113/54 L Pulse Oximetry 93 L 94 L 92 L 01/26/18 04:00 01/26/18 08:00 Temperature 98.1 F 98.5 F Pulse Rate 73 78 Respiratory Rate 18 17 Blood Pressure 124/74 106/70 Pulse Oximetry 93 L 96 Intake & Output 01/25/18 01/26/18 01/26/18 18:59 06:59 18:59 Intake Total 240 / 240 Output Total 250 / 250 Balance -10 / -10 Weight 88.4 kg Intake: Oral 240 / 240 Output: Urine 250 / 250 Other: # Bowel Movements 0 <Chevy Hernandez - 01/26/18 13:28> Vital Signs 01/25/18 10:00 01/25/18 12:00 01/25/18 16:00 Temperature 98.2 F 97.4 F L Pulse Rate 82 81 Respiratory Rate 16 16 16 Blood Pressure 89/54 L 143/71 H Pulse Oximetry 94 L 93 L 01/25/18 20:00 01/26/18 00:00 01/26/18 04:00 Temperature 98.5 F 98 F 98.1 F Pulse Rate 92 H 72 73 Respiratory Rate 18 18 18 Blood Pressure 111/70 113/54 L 124/74 Pulse Oximetry 94 L 92 L 93 L 01/26/18 08:00 Temperature 98.5 F Pulse Rate 78 Respiratory Rate 17 Blood Pressure 106/70 Pulse Oximetry 96 Intake & Output 01/25/18 01/26/18 01/26/18 18:59 06:59 18:59 Intake Total 240 / 240 Output Total 250 / 250 Balance -10 / -10 Weight 88.4 kg Intake: Oral 240 / 240 Output: Urine 250 / 250 Other: # Bowel Movements 0 <Roge Flores - 01/26/18 09:36> Narrative: GENERAL: Laying in bed, no acute distress SKIN: Warm and dry. Many ecchymoses, skin tears. HEAD: Normocephalic. EYES: No scleral icterus. No injection or drainage. NECK: Supple, trachea midline. No JVD or lymphadenopathy. CARDIOVASCULAR: Regular rate and rhythm without murmurs, gallops, or rubs. RESPIRATORY: Breath sounds equal bilaterally. No accessory muscle use. GASTROINTESTINAL: Abdomen soft, non-tender, nondistended. MUSCULOSKELETAL: No cyanosis, or edema. Left lower arm in clean dry intact splint. Neurovascularly intact. BACK: Nontender without obvious deformity. No CVA tenderness. <Roge Flores - 01/26/18 09:36> Assessment and Plan - Assessment (1) Weakness Code(s): R53.1 - Weakness Status: Acute (2) Multiple falls Code(s): R29.6 - Repeated falls Status: Acute (3) Left radial fracture Code(s): S52.92XA - Unspecified fracture of left forearm, initial encounter for closed fracture Status: Acute (4) Alcohol abuse Code(s): F10.10 - Alcohol abuse, uncomplicated Status: Chronic (5) Hypertension Code(s): I10 - Essential (primary) hypertension Status: Acute (6) Hyperlipidemia Code(s): E78.5 - Hyperlipidemia, unspecified Status: Acute (7) Depression Code(s): F32.9 - Major depressive disorder, single episode, unspecified Status : Acute (8) History of coronary artery bypass graft Code(s): Z95.1 - Presence of aortocoronary bypass graft Status: Acute (9) Claudication Code(s): I73.9 - Peripheral vascular disease, unspecified Status: Acute (10) Nutrition, metabolism, and development symptoms Code(s): R63.8 - Other symptoms and signs concerning food and fluid intake Status: Acute <Chevy Hernandez - 01/26/18 13:28> (1) Weakness Code(s): R53.1 - Weakness Status: Acute Plan: Likely multifactorial with progressive weakness due to heavy alcohol intake and poor nutrition. Troponins, EKGs negative. MRI without acute pathology. Continues to have weakness. -Possible cardiovascular versus neurologic cause -Echocardiogram shows 65-70% EF -Monitor on telemetry -Monitor electrolytes and correct them as needed PT/OT ordered to evaluate patient twice daily Case management ordered to assist with probable placement. Placement issues due to observation status and Medicare insurance. (2) Multiple falls Code(s): R29.6 - Repeated falls Status: Acute Plan: See plan for weakness (3) Left radial fracture Code(s): S52.92XA - Unspecified fracture of left forearm, initial encounter for closed fracture Status: Acute Plan: Patient discussed surgical versus nonsurgical options with orthopedics. Has opted for nonsurgical treatment. Currently in splint. (4) Alcohol abuse Code(s): F10.10 - Alcohol abuse, uncomplicated Status: Chronic Plan: Heavy history of alcohol abuse and CT of the brain shows diffuse atrophy Monitor for signs of withdrawal CIWA protocol in place (5) Hypertension Code(s): I10 - Essential (primary) hypertension Status: Acute Plan: History of hypertension -Continue home metoprolol 50 mg p.o. twice daily, amlodipine 5 mg's daily (6) Hyperlipidemia Code(s): E78.5 - Hyperlipidemia, unspecified Status: Acute Plan: History of hyperlipidemia -Continue home rosuvastatin 5 mg daily (7) Depression Code(s): F32.9 - Major depressive disorder, single episode, unspecified Status : Acute Plan: History of depression -Continue home Lexapro 10 mg p.o. twice daily (8) History of coronary artery bypass graft Code(s): Z95.1 - Presence of aortocoronary bypass graft Status: Acute Plan: Reports a history of four-vessel CABG in 2006. -Continue home medications aspirin 81 mg p.o. daily, Plavix 75 mg p.o. every other day (9) Claudication Code(s): I73.9 - Peripheral vascular disease, unspecified Status: Acute Plan: History of chronic claudication. No recent increase in symptoms. Reports he has been worked up outpatient for this with no intervention. -Continue Pletal 100 mg p.o. twice daily (10) Nutrition, metabolism, and development symptoms Code(s): R63.8 - Other symptoms and signs concerning food and fluid intake Status: Acute Plan: Fluids: Tolerating p.o. Electrolytes: Monitor and replete as needed Nutrition: Tolerating p.o., will need n.p.o. if going to surgery <Roge Flores - 01/26/18 09:26> - Attending Attestation I have independently examined the patient and discussed the case with resident physicians I have read the above note and agree with the assessment/plan as discussed with me I was involved in all medical decision making for this patient Generalized weakness: MRI of lumbar spine shows acute compression fracture, degenerative disc disease with some facet hypertrophy without significant neural compromise MRI of the brain shows diffuse atrophy without acute process Otherwise workup has been negative PT continues to work with patient and we will set up home health care with outpatient physical therapy Chevy Hernandez MD <Chevy Hernandez - 01/26/18 13:28>
--- NOTE | 2018-01-26 11:20 | P.DCO ---
- Physical Therapy Order: Evaluate and treat, Improve ambulation, Strength and gait training - Occupational Therapy Order: Evaluate and treat, Gross motor coordination - Home Health Nursing Order: Medical education, Signs/symptoms of disease process - Certification I have seen patient Prince Orr on 01/26/18. My clinical findings support the need for the requested home health care services because: Limited mobility due to disease progression, Deconditioned with increased weakness, Limited ability to care for self, High risk of falls I certify that my clinical findings support that this patient is homebound because: Unsteady gait/balance
[2018-01-26] MEDS ORDERED: Potassium Bicarbonate 25 MEQ Effervescent Tablet PO ONE ×2 (13:19→15:53)
[2018-01-26] MEDS ORDERED: Magnesium Sulfate Inj 2 GM in Sodium Chlor 0.9% Inj 96 ML IV.SIG ONE (13:26)
[2018-01-26 15:26] LABS: Calcium 8.8 mg/dL (8.5-10.1); Carbon Dioxide 27.1 meq/L (21.0-32.0); Potassium 3.5 meq/L (3.5-5.1)
[2018-01-27 04:28] VITALS: BP 139/82; TEMP 98; O2SAT 95
[2018-01-27 07:23] LABS: Hematocrit 26.8 % (39.0-51.0); Hemoglobin 8.6 gm/dL (13.0-17.0); Mean Corpuscular HGB Conc 32.1 % (32.0-36.0); Mean Corpuscular Hemoglobin 30.2 pg (27.0-34.0); Mean Corpuscular Volume 94.1 fL (80.0-100.0); Mean Platelet Volume 7.7 fL (7.0-11.0); Platelet Count 181 th/mm3 (150-450); Red Blood Count 2.85 mil/mm3 (4.50-5.90); Red Cell Distribution Width 18.6 % (11.6-17.2); White Blood Count 3.7 th/mm3 (4.0-11.0)
[2018-01-27 07:51] LABS: Calcium 8.8 mg/dL (8.5-10.1); Carbon Dioxide 25.5 meq/L (21.0-32.0); Potassium 3.5 meq/L (3.5-5.1)
[2018-01-27 07:52] LABS: Magnesium 1.3 mg/dL (1.5-2.5)
--- NOTE | 2018-01-27 09:13 | P.PNFP ---
Subjective Interval history: Patient seen and examined this morning. States his weakness is approximately 50% better. No throbbing or tightness in his left arm. Denies nausea, vomiting, fever, chills abdominal pain, chest pain, lightheadedness, shortness of breath, changes in bowel or bladder habits. No additional complaints today. Spoke with physical therapy in the room who reports he is improving at this time. Will likely have an easier time get out of bed at home due to its height and firmness. She agrees with outpatient physical therapy. <Roge Flores - 01/27/18 09:13> Results - Labs Result diagrams: 01/27/18 05:45 01/27/18 05:45 <Chevy Hernandez - 01/27/18 13:26> Abnormal lab results 01/24/18 01/26/18 01/26/18 Range/Units 05:18 14:55 19:15 WBC (4.0-11.0) th/mm3 RBC (4.50-5.90) mil/mm3 Hgb (13.0-17.0) gm/dL Hct (39.0-51.0) % RDW (11.6-17.2) % Sodium 132 L (136-145) meq/L Chloride 95 L (98-107) meq/L BUN 22 H (7-18) mg/dL Estimated GFR 60 L (>89) mL/min Magnesium 1.2 L (1.5-2.5) mg/dL Thiamine 67 L (70-180) nmol/L 01/27/18 01/27/18 Range/Units 05:45 05:45 WBC 3.7 L (4.0-11.0) th/mm3 RBC 2.85 L (4.50-5.90) mil/mm3 Hgb 8.6 L (13.0-17.0) gm/dL Hct 26.8 L (39.0-51.0) % RDW 18.6 H (11.6-17.2) % Sodium 132 L (136-145) meq/L Chloride 96 L (98-107) meq/L BUN (7-18) mg/dL Estimated GFR 69 L (>89) mL/min Magnesium 1.3 L (1.5-2.5) mg/dL Thiamine (70-180) nmol/L Short CBC 01/27/18 Range/Units 05:45 WBC 3.7 L (4.0-11.0) th/mm3 Hgb 8.6 L (13.0-17.0) gm/dL Hct 26.8 L (39.0-51.0) % Plt Count 181 (150-450) th/mm3 BMP 01/26/18 01/27/18 14:55 05:45 Sodium 132 L 132 L Potassium 3.5 3.5 Chloride 95 L 96 L Carbon Dioxide 27.1 25.5 BUN 22 H 17 Creatinine 1.20 1.06 Calcium 8.8 8.8 <Chevy Hernandez - 01/27/18 13:26> Abnormal lab results 01/24/18 01/26/18 01/26/18 Range/Units 05:18 14:55 19:15 WBC (4.0-11.0) th/mm3 RBC (4.50-5.90) mil/mm3 Hgb (13.0-17.0) gm/dL Hct (39.0-51.0) % RDW (11.6-17.2) % Sodium 132 L (136-145) meq/L Chloride 95 L (98-107) meq/L BUN 22 H (7-18) mg/dL Estimated GFR 60 L (>89) mL/min Magnesium 1.2 L (1.5-2.5) mg/dL Thiamine 67 L (70-180) nmol/L 01/27/18 01/27/18 Range/Units 05:45 05:45 WBC 3.7 L (4.0-11.0) th/mm3 RBC 2.85 L (4.50-5.90) mil/mm3 Hgb 8.6 L (13.0-17.0) gm/dL Hct 26.8 L (39.0-51.0) % RDW 18.6 H (11.6-17.2) % Sodium 132 L (136-145) meq/L Chloride 96 L (98-107) meq/L BUN (7-18) mg/dL Estimated GFR 69 L (>89) mL/min Magnesium 1.3 L (1.5-2.5) mg/dL Thiamine (70-180) nmol/L Short CBC 01/27/18 Range/Units 05:45 WBC 3.7 L (4.0-11.0) th/mm3 Hgb 8.6 L (13.0-17.0) gm/dL Hct 26.8 L (39.0-51.0) % Plt Count 181 (150-450) th/mm3 BMP 01/26/18 01/27/18 14:55 05:45 Sodium 132 L 132 L Potassium 3.5 3.5 Chloride 95 L 96 L Carbon Dioxide 27.1 25.5 BUN 22 H 17 Creatinine 1.20 1.06 Calcium 8.8 8.8 <Roge Flores - 01/27/18 09:13> Physical Exam Vital signs: Vital Signs 01/26/18 16:00 01/26/18 20:00 01/27/18 00:00 Temperature 98.4 F 97.9 F 97.7 F Pulse Rate 69 71 70 Respiratory Rate 18 18 17 Blood Pressure 148/83 H 150/78 H 103/59 L Pulse Oximetry 96 96 94 L 01/27/18 04:00 01/27/18 08:00 Temperature 98 F Pulse Rate 69 84 Respiratory Rate 17 20 Blood Pressure 139/82 Pulse Oximetry 95 Intake & Output 01/26/18 01/27/18 01/27/18 18:59 06:59 18:59 Intake Total 480 / 480 Output Total 750 / 750 901 / 901 Balance -270 / -270 -901 / -901 Weight 89.5 kg Intake: Oral 480 / 480 Output: Urine 750 / 750 900 / 900 Stool Other: # Voids 2 Date of Last Bowel Movement 01/26/18 01/26/18 # Bowel Movements 0 <Chevy Hernandez - 01/27/18 13:26> Vital Signs 01/26/18 12:00 01/26/18 16:00 01/26/18 20:00 Temperature 97.8 F 98.4 F 97.9 F Pulse Rate 69 69 71 Respiratory Rate 17 18 18 Blood Pressure 144/79 H 148/83 H 150/78 H Pulse Oximetry 97 96 96 01/27/18 00:00 01/27/18 04:00 Temperature 97.7 F 98 F Pulse Rate 70 69 Respiratory Rate 17 17 Blood Pressure 103/59 L 139/82 Pulse Oximetry 94 L 95 Intake & Output 01/26/18 01/27/18 01/27/18 18:59 06:59 18:59 Intake Total 480 / 480 Output Total 750 / 750 901 / 901 Balance -270 / -270 -901 / -901 Weight 89.5 kg Intake: Oral 480 / 480 Output: Urine 750 / 750 900 / 900 Stool Other: # Voids 2 Date of Last Bowel Movement 01/26/18 # Bowel Movements 0 <Roge Flores - 01/27/18 09:13> Narrative: GENERAL: Laying in bed, no acute distress SKIN: Warm and dry. Many ecchymoses, skin tears. HEAD: Normocephalic. EYES: No scleral icterus. No injection or drainage. NECK: Supple, trachea midline. No JVD or lymphadenopathy. CARDIOVASCULAR: Regular rate and rhythm without murmurs, gallops, or rubs. RESPIRATORY: Breath sounds equal bilaterally. No accessory muscle use. GASTROINTESTINAL: Abdomen soft, non-tender, nondistended. MUSCULOSKELETAL: No cyanosis, or edema. Left lower arm in clean dry intact splint. Neurovascularly intact. BACK: Nontender without obvious deformity. No CVA tenderness. <Roge Flores - 01/27/18 09:13> Assessment and Plan - Assessment (1) Weakness Code(s): R53.1 - Weakness Status: Acute (2) Multiple falls Code(s): R29.6 - Repeated falls Status: Acute (3) Left radial fracture Code(s): S52.92XA - Unspecified fracture of left forearm, initial encounter for closed fracture Status: Acute (4) Alcohol abuse Code(s): F10.10 - Alcohol abuse, uncomplicated Status: Chronic (5) Hypertension Code(s): I10 - Essential (primary) hypertension Status: Acute (6) Hyperlipidemia Code(s): E78.5 - Hyperlipidemia, unspecified Status: Acute (7) Depression Code(s): F32.9 - Major depressive disorder, single episode, unspecified Status : Acute (8) History of coronary artery bypass graft Code(s): Z95.1 - Presence of aortocoronary bypass graft Status: Acute (9) Claudication Code(s): I73.9 - Peripheral vascular disease, unspecified Status: Acute (10) Nutrition, metabolism, and development symptoms Code(s): R63.8 - Other symptoms and signs concerning food and fluid intake Status: Acute <Chevy Hernandez - 01/27/18 13:26> (1) Weakness Code(s): R53.1 - Weakness Status: Acute Plan: Likely multifactorial with progressive weakness due to heavy alcohol intake and poor nutrition. Troponins, EKGs negative. MRI without acute pathology. Continues to have weakness reports 50% better. Lumbar MRI with mild L1 compression fracture. Possible cardiovascular versus neurologic cause -Echocardiogram shows 65-70% EF -Monitor on telemetry -Monitor electrolytes and correct them as needed, improving -PT/OT ordered to evaluate patient twice daily (2) Multiple falls Code(s): R29.6 - Repeated falls Status: Acute Plan: See plan for weakness (3) Left radial fracture Code(s): S52.92XA - Unspecified fracture of left forearm, initial encounter for closed fracture Status: Acute Plan: Patient discussed surgical versus nonsurgical options with orthopedics. Has opted for nonsurgical treatment. Currently in splint. Follow-up outpatient (4) Alcohol abuse Code(s): F10.10 - Alcohol abuse, uncomplicated Status: Chronic Plan: Heavy history of alcohol abuse and CT of the brain shows diffuse atrophy Monitor for signs of withdrawal CIWA protocol in place (5) Hypertension Code(s): I10 - Essential (primary) hypertension Status: Acute Plan: History of hypertension -Continue home metoprolol 50 mg p.o. twice daily, amlodipine 5 mg's daily (6) Hyperlipidemia Code(s): E78.5 - Hyperlipidemia, unspecified Status: Acute Plan: History of hyperlipidemia -Continue home rosuvastatin 5 mg daily (7) Depression Code(s): F32.9 - Major depressive disorder, single episode, unspecified Status : Acute Plan: History of depression -Continue home Lexapro 10 mg p.o. twice daily (8) History of coronary artery bypass graft Code(s): Z95.1 - Presence of aortocoronary bypass graft Status: Acute Plan: Reports a history of four-vessel CABG in 2006. -Continue home medications aspirin 81 mg p.o. daily, Plavix 75 mg p.o. every other day (9) Claudication Code(s): I73.9 - Peripheral vascular disease, unspecified Status: Acute Plan: History of chronic claudication. No recent increase in symptoms. Reports he has been worked up outpatient for this with no intervention. -Continue Pletal 100 mg p.o. twice daily (10) Nutrition, metabolism, and development symptoms Code(s): R63.8 - Other symptoms and signs concerning food and fluid intake Status: Acute Plan: Fluids: Tolerating p.o. Electrolytes: Monitor and replete as needed Nutrition: Tolerating p.o., will need n.p.o. if going to surgery <Roge Flores - 01/27/18 09:07> - Attending Attestation Patient examined independently and case discussed with resident physicians I have read the above note and agree with the assessment/plan as discussed with me I was involved in all medical decision making for this patient Chevy Hernandez MD <Chevy Hernandez - 01/27/18 13:26>
[2018-01-27] MEDS: Senna/Docusate Sodium 8.6/50 MG Tablet PO SCH (10:01)
[2018-01-27] MEDS: Escitalopram 10 MG Tablet PO SCH (10:02)
[2018-01-27] MEDS: amLODIPine 5 MG Tablet PO SCH (10:02)
[2018-01-27] MEDS: Metoprolol Tartrate 50 MG Tablet PO SCH (10:02)
[2018-01-27 10:35] VITALS: PULSE 84
[2018-01-27 12:04] VITALS: RESP 20
--- NOTE | 2018-01-27 18:03 | P.DS ---
Date of admission: 01/23/18 12:51 Primary care physician: Leah Arteaga MD Brief History from admission: 67-year-old male presenting to the emergency department for progressive weakness and falls at home. He states that over the last several months she has progressively become more weak and has had numerous falls at home due to this weakness and being unsteady on his feet. He states that he fell approximately 1 week ago in which she had immediate left wrist pain that has not improved. Yesterday, he states that he fell approximately 3-4 times at home. These falls are described as mechanical falls due to instability, he denies any loss of consciousness or syncopal events. He denies fevers or chills, he denies palpitations or chest pain, he denies shortness of breath, he denies lower extremity paresthesias, he denies bowel or bladder incontinence, he denies post ictal type symptoms. He does have a heavy history of alcohol use with his drink of choice being vodka. He states that he will drink approximately one half bottle of vodka per day and he has done this for several years. He has not had any episodes of withdrawal, however he is also not had any extended period of abstaining from alcohol over the last several years. He states he continues to eat well, however he has continued his high level of alcohol intake. DS: Diagnosis - Discharge Diagnosis (1) Claudication Status: Acute (2) Multiple falls Status: Acute (3) Weakness Status: Acute DS: Medications - Discharge Medications Prescriptions: hydrocodone-acetaminophen [[place]] 1 tab PO Q4-6H PRN 3 Days #18 tab PRN Reason: Pain DS: Summary Hospital Course: Mr. Orr was admitted on 01/23 for weakness and multiple falls and was found to have a Colles' fracture of the left wrist. He was seen by Ortho who recommended nonoperative treatment, splinting with follow-up in outpatient basis with Dr. Farmer. He was found to have hypokalemia as well as hypomagnesemia, electrolytes were repleted. Patient worked with PT throughout hospital stay and began to recover strength. His requested outpatient PT therapy be initiated on discharge. Patient was given an attachment for his walker in order to support his broken wrist. Patient to follow-up with primary care physician and possible referral to vascular surgery on discharge. Patient was discharged 01/27 - Time Spent with Patient Total time spent providing and/or coordinating discharge services: - Quality: VTE Deep Vein Thrombosis/Pulmonary Embolism Present on Admission: No Exam Vital signs: Vital Signs 01/26/18 20:00 01/27/18 00:00 01/27/18 04:00 Temperature 97.9 F 97.7 F 98 F Pulse Rate 71 70 69 Respiratory Rate 18 17 17 Blood Pressure 150/78 H 103/59 L 139/82 Pulse Oximetry 96 94 L 95 01/27/18 08:00 Temperature Pulse Rate 84 Respiratory Rate 20 Blood Pressure Pulse Oximetry Intake & Output 01/26/18 01/27/18 01/27/18 18:59 06:59 18:59 Intake Total 480 / 480 Output Total 750 / 750 901 / 901 Balance -270 / -270 -901 / -901 Weight 89.5 kg Intake: Oral 480 / 480 Output: Urine 750 / 750 900 / 900 Stool Other: # Voids 2 Date of Last Bowel Movement 01/26/18 01/26/18 # Bowel Movements 0 Results Procedures completed during hospitalization: Splinting of left wrist on admission 01/23 Labs on day of discharge: Labs from last 24 hours 01/27/18 01/27/18 01/26/18 05:45 05:45 19:15 WBC 3.7 L RBC 2.85 L Hgb 8.6 L Hct 26.8 L MCV 94.1 MCH 30.2 MCHC 32.1 RDW 18.6 H Plt Count 181 MPV 7.7 Sodium 132 L Potassium 3.5 Chloride 96 L Carbon Dioxide 25.5 Anion Gap 11 BUN 17 Creatinine 1.06 Estimated GFR 69 L Random Glucose 92 Calcium 8.8 Magnesium 1.3 L 1.2 L - Impressions ITS Impressions Chest X-Ray 01/23/18 10:45 CONCLUSION: No acute cardiopulmonary disease. Head CT 01/23/18 10:45 CONCLUSION: 1. No acute hemorrhage or mass effect. 2. Moderate atrophy and extensive chronic small vessel ischemic changes. Wrist X-Ray 01/23/18 12:31 CONCLUSION: 1. Mildly comminuted fracture deformity of the distal radius. 2. Osteoarthritic change. Head MRI 01/24/18 00:00 CONCLUSION: No evidence of acute intracranial pathology. Chronic ischemic changes as above. Lumbar Spine MRI 01/25/18 00:00 CONCLUSION: Discharge Plan - Discharge Disposition Patient Disposition: 01 Discharge Home - Discharge Condition Condition: Stable - Discharge Order Discharge Orders: Discharge Order (Routine); Ordered 01/27/18 Ordered By: Eve Hoover [facility] Clear for Discharge (Routine); Ordered 01/24/18 Ordered By: Garrison Tierney - Discharge Details Anticipated Discharge Date: 01/23/18 - Physicians Team Primary Care Provider: Leah Arteaga Attending Provider: Chevy Hernandez Other Providers: Wanda Fernandez MD ; Yovany Farmer MD
== END 2018-01-27 14:19 | disposition home or self-care (01) ==
LOC: NEPE 08:13 → NEDA 08:13 → N04 08:13
PROVIDERS: ADMIT Family Medicine; ATTEND Family Medicine